=== PATIENT | female | born 1950 | race Caucasian/White ===

== ENCOUNTER 2018-12-06 09:36 | Outpatient (CLI) | payer MEDICARE, OTHER, SELFPAY ==
[2018-12-06 14:21] LABS: CREATININE 1.07 mg/dL (0.55-1.02); Calculated LDL 167 mg/dL; Cholesterol 275 mg/dL (50-200); Estimated GFR 50.84 (mL/min/1.73m2); HDL Cholesterol 71 mg/dL (40-60); Potassium 5.3 mmol/L (3.5-5.1); Triglyceride 189 mg/dL (30-150)
== END 2018-12-06 09:56 ==
PROVIDERS: PCP Family Medicine; Visit Provider Family Medicine
DX: I10 Essential (primary) hypertension (principal); E78.5 Hyperlipidemia, unspecified
CPT/HCPCS: 36415; 80061; 82565; 84132

== ENCOUNTER 2019-02-22 08:37 | Outpatient (CLI) | payer MEDICARE, OTHER, SELFPAY ==
[2019-02-22 18:56] LABS: Potassium 4.7 mmol/L (3.5-5.1)
== END 2019-02-22 08:57 ==
PROVIDERS: PCP Family Medicine; Visit Provider Family Medicine
DX: E87.5 Hyperkalemia (principal)
CPT/HCPCS: 36415; 84132

== ENCOUNTER 2019-11-29 02:46 | Outpatient (CLI) | payer MEDICARE, OTHER, SELFPAY ==
[2019-11-29 13:00] LABS: Abs Immature Grans 0.03 10^3/uL (0.0-0.06); Absolute Basophil Count 0.03 10^3/uL (0.0-0.2); Absolute Eosinophil Count 0.29 10^3/uL (0.0-0.7); Absolute Lymphocyte Count 2.12 10^3/uL (1.2-3.4); Absolute Monocyte Count 0.63 10^3/uL (0.1-0.8); Absolute Neutrophil Count 4.25 10^3/uL (1.2-6.7); Basophils % 0.4; Eosinophils % 3.9; HCT 43.1 % (36.0-46.0); HGB 14.2 g/dL (11.2-15.7); Immature Grans % 0.4; Lymphocytes % 28.8; MCH 30.6 pg (27.0-33.0); MCHC 32.9 % (32.0-36.0); MCV 92.9 fL (80-95); MPV 9.6 fL (8.0-11.0); Monocytes % 8.6; Neutrophils % 57.9; Nucleated RBC 0 %; Platelet Count 245 10^3/uL (130-400); RBC 4.64 10^6/uL (3.93-5.22); RDW 12.7 % (11.7-14.6); RDW-SD 43.3 fL; WBC 7.35 10^3/uL (4.4-10.8)
[2019-11-29 14:04] LABS: ESR 12 mm/hr (0-30)
[2019-11-29 14:07] LABS: Calculated LDL 191 mg/dL (<100); Cholesterol 285 mg/dL (<200); Glucose 101 mg/dL (74-106); HDL Cholesterol 75 mg/dL (40-60); Potassium 5.2 mmol/L (3.5-5.1); Triglyceride 95 mg/dL (<150); Vitamin B12 281 pg/mL (193-986)
[2019-11-29 14:18] LABS: C-Reactive Protein 0.14 mg/dL (0.0-0.3)
[2019-11-30 16:03] LABS: CREATININE 1.08 mg/dL (0.55-1.02); Estimated GFR 50.16 (mL/min/1.73m2)
== END 2019-11-29 03:06 ==
PROVIDERS: PCP Family Medicine; Visit Provider Family Medicine
DX: D64.9 Anemia, unspecified (principal); M25.50 Pain in unspecified joint; E78.5 Hyperlipidemia, unspecified; R73.9 Hyperglycemia, unspecified; R41.82 Altered mental status, unspecified; E87.5 Hyperkalemia
CPT/HCPCS: 36415; 80061; 82947; 85652; 82565; 82607; 84132; 85025; 86140

== ENCOUNTER 2020-02-20 05:13 | Outpatient (CLI) | payer MEDICARE, SELFPAY ==
[2020-02-20 12:44] LABS: Potassium 5.2 mmol/L (3.5-5.1)
== END 2020-02-20 05:33 ==
PROVIDERS: PCP Family Medicine; Visit Provider Family Medicine
DX: I10 Essential (primary) hypertension (principal)
CPT/HCPCS: 36415; 84132

== ENCOUNTER 2020-04-18 03:39 | Outpatient (CLI) | payer MEDICARE, SELFPAY ==
[2020-04-18 17:33] LABS: C-Reactive Protein 0.22 mg/dL (0.0-0.3)
[2020-04-19 12:58] LABS: ESR 16 mm/hr (<or=30)
[2020-04-20 16:38] LABS: Rheumatoid Factor <8.6 IU/mL (<12.0)
[2020-04-22 15:17] LABS: ANA Interpretation Positive (Negative); ANA Titer Pattern 1:320 Homogeneous
[2020-04-24 14:55] LABS: dsDNA Ab, IgG <12.3 IU/mL (<30.0)
== END 2020-04-18 03:40 | disposition home or self-care (01) ==
LOC: LBO 03:39
PROVIDERS: PCP Family Medicine; Visit Provider Family Medicine
DX: M25.541 Pain in joints of right hand (principal); M25.542 Pain in joints of left hand; M19.041 Primary osteoarthritis, right hand; M19.042 Primary osteoarthritis, left hand
CPT/HCPCS: 36415; 85652; 86038; 86140; 86225; 86431

== ENCOUNTER 2020-08-20 02:50 | Outpatient (CLI) | payer MEDICARE, SELFPAY ==
[2020-08-20 15:43] LABS: Abs Immature Grans 0.05 10^3/uL (0.0-0.06); Absolute Basophil Count 0.05 10^3/uL (0.0-0.2); Absolute Eosinophil Count 0.23 10^3/uL (0.0-0.7); Absolute Lymphocyte Count 2.18 10^3/uL (1.2-3.4); Absolute Monocyte Count 0.69 10^3/uL (0.1-0.8); Absolute Neutrophil Count 5.14 10^3/uL (1.2-6.7); Basophils % 0.6; Eosinophils % 2.8; HGB 12.8 g/dL (11.2-15.7); Immature Grans % 0.6; Lymphocytes % 26.1; MCH 30.5 pg (27.0-33.0); MCHC 32.8 % (32.0-36.0); MCV 92.9 fL (80-95); MPV 9.2 fL (8.0-11.0); Monocytes % 8.3; Neutrophils % 61.6; Nucleated RBC 0 %; Platelet Count 271 10^3/uL (130-400); RDW 12.7 % (11.7-14.6); RDW-SD 43.5 fL; WBC 8.34 10^3/uL (4.4-10.8)
[2020-08-20 16:33] LABS: ALT 25 U/L (14-59); AST 25 U/L (15-37); Albumin 3.6 g/dL (3.4-5.0); Alkaline Phosphatase 92 U/L (46-116); Anion Gap 9.7 mmol/L (3-11); BUN 16 mg/dL (7-18); Bilirubin, Total 0.2 mg/dL (0.2-1.0); CO2 26.3 mmol/L (21.0-32.0); CREATININE 1.2 mg/dL (0.55-1.02); Calcium 8.7 mg/dL (8.5-10.1); Chloride 100 mmol/L (98-107); Estimated GFR 44.29 (mL/min/1.73m2); Glucose 132 mg/dL (74-106); Potassium 4.2 mmol/L (3.5-5.1); Sodium 136 mmol/L (136-145); Total Protein 6.8 g/dL (6.4-8.2)
== END 2020-08-20 02:51 | disposition home or self-care (01) ==
LOC: LBO 02:50
PROVIDERS: PCP Family Medicine; Visit Provider Physician Assistant
DX: M25.551 Pain in right hip (principal); M25.552 Pain in left hip; Z79.899 Other long term (current) drug therapy; Z51.81 Encounter for therapeutic drug level monitoring
CPT/HCPCS: 36415; 80053; 85025

== ENCOUNTER 2021-03-10 02:07 | Outpatient (CLI) | payer MEDICARE, SELFPAY ==
--- NOTE | 2021-03-10 07:00 | DI.NM_ITS ---
APPROVED REPORT Exam: Pharmacologic Patient Location: Out-Patient Room/Bed: Stress Nurse: Peg Fischer RN Ordering Provider:NICOLAS LUJAN, Contact Number: [phone] BMI: 24.56 Baseline Rhythm: Sinus Rhythm Comment: Frequent PACs and occasional PVCs, T wave inversion lead V2 Indications: Chest pain Medical History Medical History: Hypertension, hyperliipidemia, AAA repair, COPD, hx CHF, COPD, depression, smoker (f ormer) Cardiac Medications: Aspirin, lisinopril, albuterol sulfate, trazodone, pantoprazole Allergies: Penicillin, corn syrup, soap and perfume products Cardiac Risk Factors: Hypertension, hyperlipidemia, smoker (former), COPD, CVD Previous Cardiac Procedures: AAA repair (2014) Pretest Chest Pain Characteristics: None Exercise History: Sedentary Physical Disabilities: Pt has new diagnosis psoriatic arthritis, current general pain level 8/10 Lung Sounds: Clear to auscultation, Clear to auscultation Heart Sounds: Regular Stress Test Details Test: Pharmacologic stress was paired with low level exercise. Reason for pharmacologic stress test: physical limitation. Nuclear Acquisition: Rest Tc-99m/Stress Tc-99m 1 day Rest Isotope: Tc-99m Sestamibi. Dose: 10.2 Date: 03/10/2021 Injection Time: 0920 Stress Isotope: Tc-99m Sestamibi. Dose: 29.1 Date: 03/10/2021 Injection Time: 1115 HR Resting HR Supine: 67 bpm Max Heart Rate (APMHR): 149.529919 bpm Resting HR Standin bpm Target HR (85% APMHR): 126.709992 bpm Max HR Achieved: 132 bpm % of APMHR: 88.59 Recovery HR: 85 bpm BP Resting BP Supine: 142/62 mmHg Resting BP Standin/64 mmHg Max BP: 138/64 mmHg Recovery BP: 116/60 mmHg ECG Resting ECG: Sinus Rhythm Ectopy: Frequent PACs and occasional PVCs, T wave inversion lead V2 Stress ECG: Sinus Tachycardia ST Change: Horizontal ST depression Lead(s): II, III, aVF Maximum ST Deviation: 1 mm Arrhythmia: Frequent PACs and PVCs Recovery ECG: Sinus Rhythm, BBB Recovery ST Change: No significant ST segment changes noted Recovery Arrhythmia: Frquent PACs and PVCs Comment: BBB developed at 0:07sec to min 01:59 in recovery period. Clinical Stress Symptoms: Dyspnea Rate Pressure Product: [id number] Stress ECG Conclusion 1. Resting electrocardiogram showed right axis deviation, poor R wave progression possible old anteri or infarct 2. Patient underwent testing using low-level exercise coupled with pharmacologic stress 3. Peak heart rate achieved was 88% of predicted for age 4. At end exercise the electrocardiogram showed a left bundle branch block pattern. On that basis th e electrocardiographic portion of the test was nondiagnostic Stress Test Summary STAGE HR BP Symptoms NOTES Supine 67 142/62 SPO2 94% 1 min post Lexiscan injection 125 142/68 Mild SOB, SPO2 94% 3 min post Lexiscan injection 94 132/64 Mild SOB, SPO2 93% 6 min post Lexiscan injection 85 116/60 SOB resolved, SPO2 92% 9 min post Lexiscan injection 85 SPO2 94% MPI Conclusion There was no myocardial ischemia There was infarction of the posterior lateral wall EF 45% with posterior lateral hypo to akinesis Radiologist Interpretation Radiologist Interpretation by: Eduardo Wolf MD Interpretation Date/Time: 03/10/2021 16:29:44
[2021-03-10] MEDS: Regadenoson 0.4 MG/5 ML SYR IVP (12:07)
== END 2021-03-10 02:27 ==
PROVIDERS: PCP Family Medicine; Visit Provider Family Medicine
DX: R07.9 Chest pain, unspecified (principal); I49.1 Atrial premature depolarization; I49.3 Ventricular premature depolarization; I10 Essential (primary) hypertension; E78.5 Hyperlipidemia, unspecified; Z87.891 Personal history of nicotine dependence; J44.9 Chronic obstructive pulmonary disease, unspecified; I25.10 Atherosclerotic heart disease of native coronary artery without angina pectoris; I44.7 Left bundle-branch block, unspecified
CPT/HCPCS: 78452; 93016; 93018; 93017; J2785

== ENCOUNTER 2021-04-09 09:00 | Outpatient (CLI) | payer MEDICARE, SELFPAY ==
--- NOTE | 2021-04-09 09:00 | RT.EKG_ITS ---
APPROVED REPORT Exam: Resting ECG Reason for Exam: chest pain Patient Location: O HR:77 bpm ECG Measurements Heart Rate 77 AXIS OR 160 P 36 QRSd 89 QRS 49 QT 393 T 70 QTc 445 Conclusion Sinus rhythm...normal P axis, V-rate 50- 99 Ventricular premature complex...V complex w/ short R-R interval Anteroseptal infarct, old...Q >40mS, V1-V2 Baseline wander in lead(s) I,III,aVL,aVF
== END 2021-04-09 09:01 | disposition home or self-care (01) ==
LOC: DI.CARD 09:00
PROVIDERS: PCP Family Medicine; Visit Provider Internal Medicine Cardiovascular Disease
DX: R07.9 Chest pain, unspecified (principal); R94.31 Abnormal electrocardiogram [ECG] [EKG]; I49.3 Ventricular premature depolarization
CPT/HCPCS: 93010

== ENCOUNTER → 2021-04-09 13:36 | Outpatient (BNVA) | payer MEDICARE, SELFPAY | PROVIDERS: PCP Family Medicine; Referring Provider Family Medicine; Visit Provider Internal Medicine Cardiovascular Disease | DX: I25.10 Atherosclerotic heart disease of native coronary artery without angina pectoris (principal); I10 Essential (primary) hypertension; R07.9 Chest pain, unspecified; I25.2 Old myocardial infarction | CPT/HCPCS: 93005; 99203 ==

== ENCOUNTER 2021-06-12 18:59 | Outpatient (REF) | payer MEDICARE, SELFPAY ==
[2021-06-18 11:35] LABS: 2-OH-Ethyl-Flurazepam Negative ng/mL (Cutoff: 10); 7-NH-Clonazepam Negative ng/mL (Cutoff: 10); Alpha OH-Alprazolam Negative ng/mL (Cutoff: 10); Alpha-OH Midazolam Negative ng/mL (Cutoff: 10); Alpha-OH-Triazolam Negative ng/mL (Cutoff: 10); Alprazolam Negative ng/mL (Cutoff: 10); Chlordiazepoxide Negative ng/mL (Cutoff: 10); Clobazam Negative ng/mL (Cutoff: 10); Clonazepam Negative ng/mL (Cutoff: 10); Diazepam Negative ng/mL (Cutoff: 10); Flurazepam Negative ng/mL (Cutoff: 10); Midazolam Negative ng/mL (Cutoff: 10); N-Desmethylclobazam Negative ng/mL (Cutoff: 10); Prazepam Negative ng/mL (Cutoff: 10); Temazepam Negative ng/mL (Cutoff: 10); Triazolam Negative ng/mL (Cutoff: 10); Zolpidem Carboxylic acid Negative ng/mL (Cutoff: 10)
== END 2021-06-12 19:00 | disposition home or self-care (01) ==
LOC: LBN 18:59
PROVIDERS: PCP Family Medicine; Visit Provider Family Medicine
DX: F90.9 Attention-deficit hyperactivity disorder, unspecified type (principal); M25.50 Pain in unspecified joint; Z79.899 Other long term (current) drug therapy
CPT/HCPCS: 80346

== ENCOUNTER → 2022-04-13 10:40 | Outpatient (BNVA) | payer MEDICARE, OTHER, SELFPAY | PROVIDERS: Referring Provider Family Medicine; Visit Provider Internal Medicine Cardiovascular Disease | DX: I25.10 Atherosclerotic heart disease of native coronary artery without angina pectoris | CPT/HCPCS: 99213 ==

== ENCOUNTER 2022-06-07 18:38 | Outpatient (REF) | payer MEDICARE, OTHER, SELFPAY ==
[2022-06-07 19:51] LABS: Abs Immature Grans 0.03 10^3/uL (0.0-0.06); Absolute Basophil Count 0.03 10^3/uL (0.0-0.2); Absolute Eosinophil Count 0.26 10^3/uL (0.0-0.7); Absolute Lymphocyte Count 1.93 10^3/uL (1.2-3.4); Absolute Monocyte Count 0.83 10^3/uL (0.1-0.8); Absolute Neutrophil Count 4.71 10^3/uL (1.2-6.7); Basophils % 0.4; Eosinophils % 3.3; HGB 13.5 g/dL (11.2-15.7); Immature Grans % 0.4; Lymphocytes % 24.8; MCH 30.7 pg (27.0-33.0); MCHC 32.9 % (32.0-36.0); MCV 93 fL (80-95); MPV 10.2 fL (8.0-11.0); Monocytes % 10.7; Neutrophils % 60.4; Platelet Count 266 10^3/uL (130-400); RDW 14.6 % (11.7-14.6); RDW-SD 50.3 fL; WBC 7.79 10^3/uL (4.4-10.8)
[2022-06-07 20:02] LABS: ALT 29 U/L (14-59); AST 30 U/L (15-37); Albumin 3.5 g/dL (3.4-5.0); Alkaline Phosphatase 100 U/L (46-116); Anion Gap 10.7 mmol/L (3-11); BUN 18 mg/dL (7-18); Bilirubin, Total 0.2 mg/dL (0.2-1.0); CO2 24.3 mmol/L (21.0-32.0); Calcium 8.3 mg/dL (8.5-10.1); Chloride 103 mmol/L (98-107); Estimated GFR 59.86 (mL/min/1.73m2); Glucose 89 mg/dL (74-106); Potassium 4.6 mmol/L (3.5-5.1); Sodium 138 mmol/L (136-145); TSH (W/Ref FT4) 1.63 uIU/mL (0.36-3.74); Total Protein 7.2 g/dL (6.4-8.2)
[2022-06-07 20:15] LABS: Iron 125 ug/dL (50-170); Total Iron Binding Capacity 311 ug/dL (250-450); Transferrin Sat 40 % (15-50)
== END 2022-06-07 18:39 | disposition home or self-care (01) ==
LOC: NCHCN 18:38
PROVIDERS: Visit Provider Nurse Practitioner Family
DX: R53.83 Other fatigue (principal); E87.5 Hyperkalemia; L40.50 Arthropathic psoriasis, unspecified; I10 Essential (primary) hypertension; I50.9 Heart failure, unspecified
CPT/HCPCS: 80053; 83540; 83550; 84443; 85025

== ENCOUNTER 2022-06-17 02:18 | Outpatient (CLI) | payer MEDICARE, OTHER, SELFPAY ==
[2022-06-17] MEDS: Albuterol HFA 18 GM 200 PUFF INH IH (09:15)
[2022-06-17] MEDS: Inhaler, Assist Device 1 EACH MC (09:16)
--- NOTE | 2022-06-18 12:50 | W.PFT ---
Date of service: 06/17/22 Time of Service: 08:02 Pulmonary Function Test Result Indications: Asthma Interpretation Spirometry: There is no airflow limitation. No significant bronchodilator repsonse. The FVC is low. Lung Volumes: There is mild restrictive lung disease. Diffusion Capacity: Reduced diffusion. Airway Pressure: Normal airways resistance. Impression Mild to moderate restrictive lung disease. Recommend assessment for interstitial lung disease, given the reduced diffusion. Clinical Correlation therefore is recommended.
== END 2022-06-17 02:19 | disposition home or self-care (01) ==
PROVIDERS: Visit Provider Nurse Practitioner Family
DX: J45.909 Unspecified asthma, uncomplicated (principal); J84.9 Interstitial pulmonary disease, unspecified
CPT/HCPCS: 94060; 94726; 94729

== ENCOUNTER → 2022-10-06 02:05 | Outpatient (CLI) | payer MEDICARE, OTHER, SELFPAY ==
--- NOTE | 2022-10-06 08:15 | DI.CT_ITS ---
Exam(s) CT CHEST HIGH RESOLUTION EXAM: CT CHEST HIGH RESOLUTION CLINICAL HISTORY: restictive PFT's, concern for ILD,J98.4. TECHNIQUE: Imaging protocol: Axial computed tomography images were obtained and coronal and sagittal reformatted images were created and reviewed. COMPARISON: CR CHEST 2 VIEWS PA,LAT from 02/03/2015 FINDINGS: The examination is limited due to patient motion artifact. Tracheobronchial tree: Mild bronchiectatic changes are present. Pulmonary parenchyma: There is thickening of the interstitium predominantly peripherally and most mar ked in the lung bases. There are few lucent areas seen in the lung apices which may reflect underlyi ng COPD. There do appear to be small peripheral areas of consolidation in the right lung and left li ngula. Mediastinum and Jackie: No dominant adenopathy or fluid collection. The esophagus is unremarkable.There is a large hiatal hernia. Thyroid gland: Unremarkable. Pleura: No effusion or pneumothorax. Heart: Cardiomegaly. Marked coronary artery calcification and/or stents are present. No pericardial effusion. Aorta: Thoracic aorta non-dilated. Atherosclerosis. Upper abdomen: Unremarkable. Lymph nodes: Within normal limits. Soft tissues: Unremarkable. Bones:Within normal limits for the patient's age. Old compression deformities of T4 and T5 are noted . IMPRESSION: 1. Findings of interstitial disease in the lung with mild bronchiectatic changes. 2. Lucencies in the lung apices suspicious for centrilobular emphysema. 3. Very small peripheral areas of consolidation in the lung-right upper and left lingular lobes. 4. Cardiomegaly and coronary artery calcification. 5. Large hiatal hernia. RADIATION DOSE DELIVERED: 379.89mGy.cm Total DLP 379.89mGy.cm Total DLP DATA REPOSITORY: All CT scans at this facility are submitted to the National Radiology Data Registry (NRDR) Dose Index Registry (DIR) with the [employer] (ACR). RADIATION OPTIMIZATION: All CT scans at this facility use at least one of these dose optimization te chniques: automated exposure control; mA and/or kV adjustment per patient size (includes targeted exa ms where dose is matched to clinical indication); or iterative reconstruction.
== END ==
PROVIDERS: PCP Nurse Practitioner Family; Visit Provider Student in an Organized Health Care Education/Training Program
DX: J84.9 Interstitial pulmonary disease, unspecified; K44.9 Diaphragmatic hernia without obstruction or gangrene; I51.7 Cardiomegaly
CPT/HCPCS: 71250

== ENCOUNTER 2022-12-17 16:51 | Outpatient (REF) | payer MEDICARE, OTHER, SELFPAY ==
[2022-12-17 15:47] LABS: HCT 40.5 % (36.0-46.0); HGB 13.6 g/dL (11.2-15.7); MCH 31.3 pg (27.0-33.0); MCHC 33.6 % (32.0-36.0); MCV 93 fL (80-95); MPV 10.5 fL (8.0-11.0); Platelet Count 251 10^3/uL (130-400); RBC 4.34 10^6/uL (3.93-5.22); RDW 14.3 % (11.7-14.6); WBC 9.66 10^3/uL (4.4-10.8)
[2022-12-17 15:57] LABS: Iron 125 ug/dL (50-170); Total Iron Binding Capacity 363 ug/dL (250-450); Transferrin Sat 34 % (15-50)
[2022-12-17 16:35] LABS: ALT 26 U/L (14-59); AST 32 U/L (15-37); Albumin 3.7 g/dL (3.4-5.0); Alkaline Phosphatase 107 U/L (46-116); Anion Gap 11.5 mmol/L (3-11); BUN 17 mg/dL (7-18); Bilirubin, Total 0.2 mg/dL (0.2-1.0); CO2 24.5 mmol/L (21.0-32.0); Chloride 98 mmol/L (98-107); Estimated GFR 59.49 (mL/min/1.73m2); Glucose 96 mg/dL (74-106); Potassium 4.9 mmol/L (3.5-5.1); Sodium 134 mmol/L (136-145); Total Protein 7.6 g/dL (6.4-8.2)
== END 2022-12-17 16:52 | disposition home or self-care (01) ==
LOC: NCHCN 16:51
PROVIDERS: PCP Nurse Practitioner Family; Visit Provider Nurse Practitioner Family
DX: Z86.2 Personal history of diseases of the blood and blood-forming organs and certain disorders involving the immune mechanism (principal); R53.83 Other fatigue; I10 Essential (primary) hypertension; E87.5 Hyperkalemia
CPT/HCPCS: 80053; 85027; 83540; 83550

== ENCOUNTER → 2022-12-20 13:32 | Outpatient (BNVA) | payer MEDICARE, OTHER, SELFPAY | PROVIDERS: PCP Nurse Practitioner Family; Visit Provider Physician Assistant Surgical | DX: J84.112 Idiopathic pulmonary fibrosis (principal); J44.9 Chronic obstructive pulmonary disease, unspecified; L40.50 Arthropathic psoriasis, unspecified; I10 Essential (primary) hypertension; Z86.16 Personal history of COVID-19 | CPT/HCPCS: 99214 ==

== ENCOUNTER → 2023-03-22 11:07 | Outpatient (BNVA) | payer MEDICARE, OTHER, SELFPAY | PROVIDERS: PCP Nurse Practitioner Family; Referring Provider Nurse Practitioner Family; Visit Provider Student in an Organized Health Care Education/Training Program | DX: J84.112 Idiopathic pulmonary fibrosis (principal); J96.11 Chronic respiratory failure with hypoxia; Z99.81 Dependence on supplemental oxygen; L40.50 Arthropathic psoriasis, unspecified | CPT/HCPCS: 99214 ==

== ENCOUNTER 2023-04-12 07:58 | Outpatient (CLI) | payer MEDICARE, OTHER, SELFPAY ==
--- NOTE | 2023-04-12 07:45 | RT.EKG_ITS ---
APPROVED REPORT Exam: Resting ECG Reason for Exam: cad Patient Location: O HR:74 bpm ECG Measurements Heart Rate 74 AXIS WY 156 P 72 QRSd 104 QRS 34 QT 376 T 14 QTc 418 Conclusion Sinus rhythm...normal P axis, V-rate 50- 99 Probable left atrial enlargement...P >50mS, <-0.10mV V1 Poor R wave progression, possible old anteroseptal IL
== END 2023-04-12 07:59 | disposition home or self-care (01) ==
LOC: DI.CARD 07:58
PROVIDERS: PCP Nurse Practitioner Family; Visit Provider Internal Medicine Cardiovascular Disease
DX: I25.10 Atherosclerotic heart disease of native coronary artery without angina pectoris (principal)
CPT/HCPCS: 93010

== ENCOUNTER → 2023-04-12 10:35 | Outpatient (BNVA) | payer MEDICARE, OTHER, SELFPAY | PROVIDERS: PCP Nurse Practitioner Family; Visit Provider Internal Medicine Cardiovascular Disease | DX: R94.31 Abnormal electrocardiogram [ECG] [EKG] (principal); R07.9 Chest pain, unspecified; I25.10 Atherosclerotic heart disease of native coronary artery without angina pectoris | CPT/HCPCS: 93005; 99213 ==

== ENCOUNTER 2023-05-05 05:51 | Outpatient (CLI) | payer MEDICARE, OTHER, SELFPAY ==
[2023-05-05] MEDS: Inhaler, Assist Device 1 EACH MC (13:44)
[2023-05-05] MEDS: Levalbuterol HFA 15 GM INH 4 PUFF IH (13:44)
--- NOTE | 2023-05-05 14:41 | W.PFT ---
Date of service: 05/05/23 Time of Service: 13:02 Pulmonary Function Test Result Indications: IPF Interpretation Spirometry: There is restrictive spirometry. No bronchodilator response. Diffusion Capacity: Decreased diffusion. Impression Restrictive spirometry with a decreased diffusion. Note: Compared to prior, the FEV1 and FVC has decreased. Clinical Correlation therefore is recommended.
== END 2023-05-05 05:52 | disposition home or self-care (01) ==
LOC: RT 05:51
PROVIDERS: PCP Nurse Practitioner Family; Visit Provider Student in an Organized Health Care Education/Training Program
DX: J84.112 Idiopathic pulmonary fibrosis (principal)
CPT/HCPCS: 94060; 94726; 94729

== ENCOUNTER 2023-06-15 15:53 | Outpatient (REF) | payer MEDICARE, OTHER, SELFPAY ==
[2023-06-15 19:20] LABS: Abs Immature Grans 0.05 10^3/uL (0.0-0.06); Absolute Basophil Count 0.03 10^3/uL (0.0-0.2); Absolute Eosinophil Count 0.17 10^3/uL (0.0-0.7); Absolute Lymphocyte Count 1.75 10^3/uL (1.2-3.4); Absolute Monocyte Count 0.69 10^3/uL (0.1-0.8); Absolute Neutrophil Count 7.79 10^3/uL (1.2-6.7); Basophils % 0.3 %; Eosinophils % 1.6 %; HCT 32.7 % (36.0-46.0); HGB 10.3 g/dL (11.2-15.7); Immature Grans % 0.5 %; Lymphocytes % 16.7 %; MCH 32.2 pg (27.0-33.0); MCHC 31.5 % (32.0-36.0); MCV 102 fL (80-95); MPV 9.8 fL (8.0-11.0); Monocytes % 6.6 %; Neutrophils % 74.3 %; Platelet Count 262 10^3/uL (130-400); RDW 14.3 % (11.7-14.6); RDW-SD 54.5 fL; WBC 10.48 10^3/uL (4.4-10.8)
[2023-06-15 19:35] LABS: ALT 22 U/L (14-59); AST 25 U/L (15-37); Albumin 2.9 g/dL (3.4-5.0); Alkaline Phosphatase 85 U/L (46-116); Anion Gap 9.7 mmol/L (3-11); BUN 17 mg/dL (7-18); Bilirubin, Total 0.2 mg/dL (0.2-1.0); CO2 24.3 mmol/L (21.0-32.0); CREATININE 0.8 mg/dL (0.55-1.02); Calcium 8.2 mg/dL (8.5-10.1); Chloride 106 mmol/L (98-107); Estimated GFR 77.75 (mL/min/1.73m2); Glucose 138 mg/dL (74-106); Sodium 140 mmol/L (136-145); Total Protein 6.7 g/dL (6.4-8.2)
== END 2023-06-15 15:54 | disposition home or self-care (01) ==
LOC: NCHCN 15:53
PROVIDERS: PCP Nurse Practitioner Family; Visit Provider Nurse Practitioner Family
DX: I10 Essential (primary) hypertension (principal); J84.112 Idiopathic pulmonary fibrosis
CPT/HCPCS: 80053; 85025

== ENCOUNTER 2023-07-01 14:09 | Outpatient (REF) | payer MEDICARE, OTHER, SELFPAY ==
[2023-07-01 18:44] LABS: Abs Immature Grans 0.06 10^3/uL (0.0-0.06); Absolute Basophil Count 0.05 10^3/uL (0.0-0.2); Absolute Lymphocyte Count 2.13 10^3/uL (1.2-3.4); Absolute Monocyte Count 0.99 10^3/uL (0.1-0.8); Absolute Neutrophil Count 6.78 10^3/uL (1.2-6.7); Basophils % 0.5 %; HCT 34.3 % (36.0-46.0); HGB 10.7 g/dL (11.2-15.7); Immature Grans % 0.6 %; Lymphocytes % 20.9 %; MCHC 31.2 % (32.0-36.0); MCV 99 fL (80-95); MPV 9.9 fL (8.0-11.0); Monocytes % 9.7 %; Neutrophils % 66.3 %; Platelet Count 426 10^3/uL (130-400); RBC 3.45 10^6/uL (3.93-5.22); RDW 13.6 % (11.7-14.6); RDW-SD 49.4 fL; WBC 10.21 10^3/uL (4.4-10.8)
[2023-07-01 19:05] LABS: ALT 23 U/L (14-59); AST 32 U/L (15-37); Albumin 3.3 g/dL (3.4-5.0); Alkaline Phosphatase 100 U/L (46-116); Anion Gap 9.7 mmol/L (3-11); BUN 22 mg/dL (7-18); Bilirubin, Total 0.3 mg/dL (0.2-1.0); CO2 26.3 mmol/L (21.0-32.0); Chloride 102 mmol/L (98-107); Estimated GFR 59.49 (mL/min/1.73m2); Glucose 88 mg/dL (74-106); NT-proBNP 2252 pg/mL (<300); Potassium 4.6 mmol/L (3.5-5.1); Sodium 138 mmol/L (136-145); Total Protein 7.3 g/dL (6.4-8.2)
== END 2023-07-01 14:10 | disposition home or self-care (01) ==
LOC: NCHCN 14:09
PROVIDERS: PCP Nurse Practitioner Family; Visit Provider Nurse Practitioner Family
DX: I50.9 Heart failure, unspecified (principal)
CPT/HCPCS: 80053; 83880; 85025

== ENCOUNTER 2023-09-15 18:49 | Outpatient (REF) | payer MEDICARE, OTHER, SELFPAY ==
[2023-09-15 18:30] LABS: Abs Immature Grans 0.12 10^3/uL (0.0-0.06); Absolute Basophil Count 0.06 10^3/uL (0.0-0.2); Absolute Lymphocyte Count 2.04 10^3/uL (1.2-3.4); Absolute Monocyte Count 1.01 10^3/uL (0.1-0.8); Absolute Neutrophil Count 10.64 10^3/uL (1.2-6.7); Basophils % 0.4 %; Eosinophils % 2.3 %; HCT 34.9 % (36.0-46.0); HGB 10.9 g/dL (11.2-15.7); Immature Grans % 0.8 %; Lymphocytes % 14.4 %; MCH 27.9 pg (27.0-33.0); MCHC 31.2 % (32.0-36.0); MCV 89 fL (80-95); MPV 10.2 fL (8.0-11.0); Monocytes % 7.1 %; Platelet Count 338 10^3/uL (130-400); RBC 3.91 10^6/uL (3.93-5.22); RDW 17.9 % (11.7-14.6); RDW-SD 58.9 fL; WBC 14.19 10^3/uL (4.4-10.8)
[2023-09-15 18:34] LABS: Absolute Eosinophil Count 0.33 10^3/uL (0.0-0.7)
[2023-09-15 18:45] LABS: ALT 23 U/L (14-59); AST 24 U/L (15-37); Albumin 3.3 g/dL (3.4-5.0); Alkaline Phosphatase 86 U/L (46-116); BUN 22 mg/dL (7-18); Bilirubin, Total 0.24 mg/dL (0.2-1.0); Calcium 8.8 mg/dL (8.5-10.1); Chloride 104 mmol/L (98-107); Estimated GFR 59.12 (mL/min/1.73m2); Glucose 102 mg/dL (74-106); Potassium 4.7 mmol/L (3.5-5.1); Sodium 140 mmol/L (136-145); Total Protein 7.5 g/dL (6.4-8.2)
== END 2023-09-15 18:50 | disposition home or self-care (01) ==
LOC: NCHCN 18:49
PROVIDERS: Visit Provider Nurse Practitioner Family
DX: I50.9 Heart failure, unspecified (principal); J01.90 Acute sinusitis, unspecified
CPT/HCPCS: 80053; 85025

== ENCOUNTER 2023-10-07 12:51 | Outpatient (RCR) | payer MEDICARE, OTHER, SELFPAY ==
--- NOTE | 2023-10-07 14:30 | HOLTER_ITS ---
APPROVED REPORT Conclusion This is a 48-hour Holter monitor Predominant rhythm was sinus with an average heart rate of 100. Minimum was 70 maximum 123 There were occasional ventricular ectopic beats, comprising 1.2% of total There were occasional atrial premature beats, comprising 1.2% of total There were several brief self-limited atrial runs. The longest of these was 10 beats in duration There was no atrial fibrillation, no high-grade AV block, no pauses greater than 3 seconds No patient symptoms were reported
== END 2023-10-15 23:59 | disposition home or self-care (01) ==
LOC: CARDOPNVT 12:51
PROVIDERS: Visit Provider Internal Medicine Cardiovascular Disease
DX: I49.1 Atrial premature depolarization (principal)
CPT/HCPCS: 93227; 93225; 93226

== ENCOUNTER 2024-02-21 16:55 | Outpatient (REF) | payer MEDICARE, OTHER, SELFPAY ==
[2024-02-21 19:24] LABS: Abs Immature Grans 0.06 10^3/uL (0.0-0.06); Absolute Basophil Count 0.02 10^3/uL (0.0-0.2); Absolute Eosinophil Count 0.01 10^3/uL (0.0-0.7); Absolute Lymphocyte Count 0.65 10^3/uL (1.2-3.4); Absolute Monocyte Count 0.62 10^3/uL (0.1-0.8); Absolute Neutrophil Count 10.61 10^3/uL (1.2-6.7); Basophils % 0.2 %; Eosinophils % 0.1 %; HCT 33.5 % (36.0-46.0); HGB 10.1 g/dL (11.2-15.7); Immature Grans % 0.5 %; Lymphocytes % 5.4 %; MCH 25.8 pg (27.0-33.0); MCHC 30.1 % (32.0-36.0); MCV 86 fL (80-95); MPV 10.3 fL (8.0-11.0); Monocytes % 5.2 %; Neutrophils % 88.6 %; Platelet Count 346 10^3/uL (130-400); RBC 3.91 10^6/uL (3.93-5.22); RDW 16.7 % (11.7-14.6); RDW-SD 52.1 fL; WBC 11.97 10^3/uL (4.4-10.8)
[2024-02-21 19:26] LABS: ALT 17 U/L (14-59); AST 19 U/L (15-37); Albumin 3.4 g/dL (3.4-5.0); Alkaline Phosphatase 92 U/L (46-116); Anion Gap 8.1 mmol/L (3-11); BUN 23 mg/dL (7-18); Bilirubin, Total 0.29 mg/dL (0.2-1.0); CO2 28.9 mmol/L (21.0-32.0); CREATININE 1.1 mg/dL (0.55-1.02); Calcium 8.8 mg/dL (8.5-10.1); Chloride 100 mmol/L (98-107); Estimated GFR 52.73 (mL/min/1.73m2); Glucose 99 mg/dL (74-106); Potassium 4.9 mmol/L (3.5-5.1); Sodium 137 mmol/L (136-145); TSH 1.23 uIU/mL (0.36-3.74); Total Protein 7.2 g/dL (6.4-8.2)
== END 2024-02-21 16:56 | disposition home or self-care (01) ==
LOC: NCHCN 16:55
PROVIDERS: Visit Provider Nurse Practitioner Family
DX: I10 Essential (primary) hypertension (principal)
CPT/HCPCS: 80053; 84439; 84443; 85025

== ENCOUNTER 2024-03-23 16:14 | Inpatient (IN) | payer MEDICARE, OTHER, SELFPAY ==
[2024-03-23] VITALS (55 sets, daily range): BP systolic 110–167; BP diastolic 37–96; PULSE 72–162; RESP 16–46; TEMP 36.4–36.7; O2SAT 92–100
--- NOTE | 2024-03-23 16:15 | RT.EKG_ITS ---
APPROVED REPORT Exam: Resting ECG Reason for Exam: dyspnea Patient Location: E HR:124 bpm ECG Measurements Heart Rate 124 AXIS WA 177 P 98 QRSd 86 QRS 136 QT 293 T -40 QTc 421 Conclusion Sinus tachycardia...rate> 99 Paired ventricular premature complexes...sequence of 2 V complexes Probable right ventricular hypertrophy...prominent R or R' w/ RAD or JASMINA Probable lateral infarct, age indeterminate...Q >35mS, T neg, V5-V6 I aVL No STEMI
--- NOTE | 2024-03-23 16:30 | DI.RAD_ITS ---
Exam(s) XR CHEST 2V PA LATERAL EXAM: XR CHEST 2V PA LATERAL CLINICAL HISTORY: weakness, sob TECHNIQUE: 2D digital imaging was performed of the chest. Two images were obtained. PA and lateral views were obtained. COMPARISON: CR CHEST 2 VIEWS PA,LAT from 02/03/2015 FINDINGS: MEDIASTINUM: Normal. HEART: Cardiomegaly PULMONARY VASCULATURE: There is prominence of the pulmonary vasculature. LUNGS: Bilateral ill-defined opacities are seen in the lungs. There is prominence of the interstitiu m in the lung which may represent edema. PLEURAL SPACE: No pleural effusion or pneumothorax. BONE:Within normal limits for the patient's age. There is a stable upper thoracic compression deform ity. OTHER FINDINGS:Normal. IMPRESSION: Cardiomegaly, prominence of the pulmonary vasculature and interstitial prominence suspicious for flui d overload/congestive heart failure. A superimposed pneumonia particularly in the right lung base ca nnot be excluded. Please correlate clinically. DATA REPOSITORY: RADIATION DOSE DELIVERED:
[2024-03-23 16:38] LABS: HCT 37.5 % (36.0-46.0); HGB 11.2 g/dL (11.2-15.7); MCH 25.2 pg (27.0-33.0); MCHC 29.9 % (32.0-36.0); MCV 84 fL (80-95); MPV 9.9 fL (8.0-11.0); Platelet Count 366 10^3/uL (130-400); RBC 4.45 10^6/uL (3.93-5.22); RDW 18.1 % (11.7-14.6); RDW-SD 55.7 fL; WBC 14.31 10^3/uL (4.4-10.8)
--- NOTE | 2024-03-23 16:45 | W.ED.GENAD ---
Discharge Plan Discharge Details Chief Complaint: SOB Admit Date/Time: 03/23/24 19:06 Admit Provider: Chino Uribe Attending Provider: Chino Uribe Primary Care Provider: Izzy Bhandari ED Provider: Fabienne Merlos Discharge Data Discharge Date/Time-TO BE ENTERED AT DEPARTURE: 03/23/24 21:32 HPI General Date/Time Provider Initiated Documentation: 03/23/24 16:22. HPI Narrative: Peg is a 73 year old female who presents to the emergency department today for evaluation of not feeling well. She reports she has had shortness of breath/lightheadedness that is worsened with ambulation, weakness, and fatigue for the last couple of months. Diarrhea on-and-off for the last few weeks. Denies fever/chills, unusual headaches, congestion, sore throat, change in baseline cough, nausea/vomiting, change in bladder function, or abdominal pain other then cramping prior to diarrhea. past medical history is significant for chronic respiratory failure on home O2 therapy, idiopathic pulmonary fibrosis, COPD/asthma, HTN, anxiety/depression, CAD, history of abdominal aortic aneurysm repair, GERD, heart murmur. Physical exam reassuring. Peg is alert and oriented, in no acute distress. Moist mucous membranes. Easy work of breathing, coarse lung sounds noted in bilateral bases. Tachycardia noted, irregular rate and rhythm. Abdomen is soft, nondistended, nontender to palpation. No pedal edema or obvious JVD. Runs of frequent PVCs and occasional 4-6 beat runs of tachycardia noted on monitor. D/dx includes but is not limited to: ACS, cardiac arrhythmia, PE, PNA, CHF, electrolyte imbalance, dehydration, viral illness, severe anemia I independently interpreted the following tests: EKG notable for sinus tachycardia with frequent PVCs, normal intervals. No changes consistent with acute ischemia. CBC notable for leukocytosis, white cell count 14.31. Mild hypomagnesemia (1.7) and hypokalemia (3.2) noted. CMP otherwise unremarkable. D-dimer very elevated at 1697. Coags and TSH unremarkable. CTA performed, notable for stable pulmonary fibrosis and cardiomegaly, no evidence of PE. While in the emergency department, Peg received IV potassium and magnesium for replenishment. As patient continued to have concerning runs of V. tach and frequent PVCs in setting of feeling unwell, discussed case with Dr. Uribe. Patient to be admitted for telemetry and further cardiac evaluation. Related Data Home Medications ?Medication ?Instructions ?Recorded ?Confirmed Bacillus coagulans 10 billion cell 1 ea PO DAILY 03/01/17 03/23/24 capsule,delayed release (Probiotic (B. coagulans)) inhalational spacing device #1 ea 04/12/18 03/23/24 (Aerochamber MV spacer) aspirin 325 mg tablet 325 mg PO DAILY 11/25/20 03/23/24 meloxicam 15 mg tablet 15 mg PO DAILY PRN pain #90 tabs 11/25/20 03/23/24 lisinopril 10 1 tab PO DAILY #90 tab-caps 12/08/20 03/23/24 mg-hydrochlorothiazide 12.5 mg tablet montelukast 10 mg tablet 10 mg PO DAILY #30 tabs 09/09/21 03/23/24 (Singulair) venlafaxine 75 mg capsule,extended 75 mg PO DAILY #30 caps 09/15/21 03/23/24 release 24 hr trazodone 50 mg tablet See Rx Instructions .Route 10/23/21 03/23/24 .COMPLEX #90 tabs Oxygen #1 ea 09/16/22 03/23/24 methylphenidate HCl 5 mg tablet 20 mg PO DAILY 09/16/22 03/23/24 pantoprazole 40 mg tablet,delayed 40 mg PO DAILY 09/16/22 03/23/24 release levocetirizine 5 mg tablet (Xyzal) 5 mg PO DAILY 12/20/22 03/23/24 levalbuterol tartrate 45 2 inh inhalation Q6H #15 grams 12/21/22 03/23/24 mcg/actuation aerosol inhaler methylprednisolone 4 mg tablet 4 mg PO QAM 02/11/23 03/23/24 acetaminophen 650 mg 650 mg PO BID PRN pain 02/22/23 03/23/24 tablet,extended release cetirizine 10 mg tablet (Zyrtec) 10 mg PO DAILY PRN 05/16/23 03/23/24 fluoxetine 20 mg capsule 60 mg PO DAILY 05/16/23 03/23/24 fluticasone propionate 50 1 spray intranasal DAILY PRN 05/16/23 03/23/24 mcg/actuation nasal spray,suspension aspirin 81 mg tablet,delayed 81 mg PO DAILY 03/23/24 03/23/24 release (Adult Aspirin Regimen) dextroamphetamine-amphetamine ER 20 mg PO DAILY 03/23/24 03/23/24 20 mg 24hr capsule,extend release furosemide 20 mg tablet 20 mg PO BID 03/23/24 03/23/24 lisinopril 10 mg tablet 10 mg PO DAILY 03/23/24 03/23/24 methylprednisolone 8 mg tablet 8 mg PO DAILY 03/23/24 03/23/24 Previous Rx's ?Medication ?Instructions ?Recorded inhalational spacing device #1 ea 04/12/18 (Aerochamber MV spacer) meloxicam 15 mg tablet 15 mg PO DAILY PRN pain #90 tabs 11/25/20 lisinopril 10 1 tab PO DAILY #90 tab-caps 12/08/20 mg-hydrochlorothiazide 12.5 mg tablet montelukast 10 mg tablet 10 mg PO DAILY #30 tabs 09/09/21 (Singulair) venlafaxine 75 mg capsule,extended 75 mg PO DAILY #30 caps 09/15/21 release 24 hr trazodone 50 mg tablet See Rx Instructions .Route 10/23/21 .COMPLEX #90 tabs Oxygen #1 ea 09/16/22 levalbuterol tartrate 45 2 inh inhalation Q6H #15 grams 12/21/22 mcg/actuation aerosol inhaler Allergies Allergy/AdvReac Type Severity Reaction Status Date / Time Penicillins Allergy Unknown unknown Verified 03/23/24 16:30 corn syrup AdvReac Joint and Verified 03/23/24 16:30 Head aches. soap and perfume products Allergy Unknown unknown Uncoded 03/23/24 16:30 General Stated Complaint: SOB FRANCISCO J: 2 Review of Systems Narrative: see HPI Exam Const General: cooperative, healthy appearing, comfortable, no acute distress and well developed Nutritional Appearance: average body habitus and well nourished Orientation: alert and oriented x3 Resp Effort & Inspection: normal respiratory effort and able to speak in complete sentences Auscultation: clear to auscultation bilaterally Cardio Rate: tachycardic Rhythm: regular rhythm GI Inspection: normal to inspection and non-distended Palpation: soft, not firm, no guarding, not rigid and nontender Extrem General: no pedal edema Course Vital Signs Vital signs: Vital Signs Temperature 36.4 C L 03/23/24 16:20 Pulse 117 H 03/23/24 16:20 Respiratory Rate 22 03/23/24 16:20 Blood Pressure 147/84 H 03/23/24 16:20 Pulse Oximetry 93 03/23/24 16:20 Temperature 36.4 C L 03/23/24 16:20 Temperature Source Tympanic 03/23/24 16:20 Pulse 117 H 03/23/24 16:20 Respiratory Rate 22 03/23/24 16:20 Blood Pressure 147/84 H 03/23/24 16:20 Pulse Oximetry 93 03/23/24 16:20 Oxygen Delivery Method Nasal Cannula 03/23/24 16:20 Oxygen Flow Rate 2 03/23/24 16:20 Lab/Test Results Lab/Test Results: Laboratory Tests Range/Units 03/23/24 16:27 WBC (4.4-10.8) 10^3/uL 14.31 H RBC (3.93-5.22) 10^6/uL 4.45 Hgb (11.2-15.7) g/dL 11.2 Hct (36.0-46.0) % 37.5 MCV (80-95) fL 84 MCH (27.0-33.0) pg 25.2 L MCHC (32.0-36.0) % 29.9 L RDW (11.7-14.6) % 18.1 H Plt Count (130-400) 10^3/uL 366 MPV (8.0-11.0) fL 9.9 Medical Decision Making Imaging Data Radiologic Study: Radiologist's impression: Exam(s) CT CHEST PE CTA EXAM: CT CHEST PE CTA CLINICAL HISTORY: SOB, weakness, tachycardia. TECHNIQUE: Imaging Protocol: Axial CT angiography was performed with multi-slice acquisition and multi-planar and/or 3D reconstructions. Lung Computer Aided Detection (CAD) was utilized. CONTRAST MATERIAL: Intravenous: Omnipaque 350 contrast volume:60 mL COMPARISON: CT CT CHEST HIGH RESOLUTION from 10/06/2022 CR XR CHEST 2V PA LATERAL from 03/23/2024 FINDINGS: Or patient motion Tracheobronchial tree: Patent where visualized. There is mild bronchiectasis particularly in the right lower lobe. Pulmonary parenchyma: There again seen prominent interstitial lung markings particularly in the right lung which appears stable. This may reflect pulmonary fibrosis. No new focal consolidating infiltrates are present. No suspicious pulmonary nodules are present. Pulmonary Arteries: No evidence of filling defect to suggest pulmonary emboli. Mediastinum and Jackie: No dominant adenopathy or fluid collection. The esophagus is unremarkable. There is a large hiatal hernia. Visualized thyroid gland: Unremarkable. Pleura: No effusion or pneumothorax. Heart: Cardiomegaly. Three vessel coronary artery calcification is present. No pericardial effusion. Aorta: Thoracic aorta non-dilated. No evidence of dissection. There is atherosclerotic calcification which is marked particularly involving the great vessels. Upper abdomen: Unremarkable. Soft tissues: Unremarkable. Bones: Within normal limits for the patient's age.There are old healed left rib fracture deformities. There are old T4 and T5 compression deformities. IMPRESSION: 1. No evidence of pulmonary embolism, thoracic aortic dissection or aneurysm. 2. Cardiomegaly. 3. Stable pulmonary fibrosis. No focal consolidating infiltrates. 4. Atherosclerotic calcification is present. Quality:SDOH Health Related Social Needs: Health related social needs housing instability, housed, with risk of homelessness (Z59.811), transportation insecurity (Z59.82), problems related to housing/economic circumstances (Z59.89), problems with daily activities (Z73.9), feeling lonely/isolated (Z60.8), education (Z55.6) PFSH All Active Problems (Updated 03/23/24 @ 19:13 by Chino Uribe MD) NSVT (nonsustained ventricular tachycardia) (Acute) Chronic respiratory failure with hypoxia, on home O2 therapy (Acute) Advanced care planning/counseling discussion (Acute) IPF (idiopathic pulmonary fibrosis) (Acute) Restrictive lung disease (Acute) Substance abuse (Acute) Anxiety and depression (Chronic) Hypertensive disorder (Chronic) Acute joint pain (Acute) ADD (attention deficit disorder) (Acute) Asthma (Chronic) with chronic copd Esophageal stricture (Acute) Psoriatic arthritis (Acute) Dizziness on standing (Acute) Fatigue (Acute) Pupil dilation (Acute) ? mild serotonin syndrome symptoms Coronary artery disease (Chronic) Chest pain (Acute) Positive JOSELO (antinuclear antibody) (Acute) Hand arthritis (Acute) Insomnia (Acute) Adjustment disorder (Acute) Hyperkalemia (Acute) Back pain (Acute) Arthralgia (Acute) add meloxicam Fracture of rib (Acute) Fracture of spinal vertebra (Acute) Heart failure (Acute) Papanicolaou smear of vagina with atypical squamous cells of undetermined significance (ASC-US) (Acute) Status post abdominal aortic aneurysm repair (Acute) Persistent mood disorder (Chronic) continue fluoxetine Reflux esophagitis (Acute) moderate esophageal stricture Pathological fracture of vertebra (Acute) Onychomycosis (Acute) Murmur, heart (Acute) Gastroesophageal reflux disease with esophagitis (Acute) moderate esophageal stricture Essential hypertension (Acute 02/21/13) Depressive disorder (Acute) Medical History (Updated 03/23/24 @ 19:13 by Chino Uribe MD) Palliative care encounter History of pathological fracture of vertebra History of alcoholism History of tobacco use History of ARDS Acute respiratory failure (01/13/94) pneumococcal pneumonia; intubation--cardigenic shock-cath 1995=X vessel disease Surgical History S/P AAA REPAIR (~08/2014) [facility] [place] EGD - IV Sedation (03/24/16) Colonoscopy - IV Sedation (03/24/16) Family History Mother , age 79 No problems noted. Father , age 96 No problems noted. Sister , age 62 No problems noted. Social History Smoking/Tobacco Use Status: Former Tobacco Use tobacco type: cigarettes Quit Date: 02/14/94 Pack-years: 25 Tobacco: How many years used: 30 Second Hand Exposure: No Smoking risk assessment performed?: Yes Alcohol Intake: former Drug use: Never Substance use type: does not use Caregiver/Support person: No Household members: none Housing: house Communication Needs: None Do you need help understanding health information?: Rarely Pets and animals: Yes Pets and animals: cat(s), dog(s), bird(s) and horse(s) Sexually active: No Do you think of yourself as: straight/heterosexual Current gender identity: female What is your relationship status?: How often do you talk on the phone with friends or family?: once per week How often do you get together with friends or relatives?: once per week How often do you attend hinduism or mandaeism services?: 1-3 times per year Do you belong to any clubs or organized social groups?: no Panel score (0-1 are the most socially isolated patients): 1 Duration: 60-90 minutes/day Frequency: daily Aneta/Restoration: No preference Special aneta needs: No Seatbelt use: sometimes Helmet use: Yes Helmet use: always Drive intox or ride w/intox refrigerated national truck driver: No
[2024-03-23 17:00] LABS: PTT Activated 25.2 sec (20.6-30.2); Prothrombin Time 10.3 sec (9.1-11.1)
[2024-03-23 17:09] LABS: Magnesium 1.7 mg/dL (1.8-2.4); TSH (W/Ref FT4) 0.74 uIU/mL (0.36-3.74)
[2024-03-23 17:11] LABS: D-Dimer 1697 ng/mlFEU (<500)
--- NOTE | 2024-03-23 17:15 | DI.CT_ITS ---
Exam(s) CT CHEST PE CTA EXAM: CT CHEST PE CTA CLINICAL HISTORY: SOB, weakness, tachycardia. TECHNIQUE: Imaging Protocol: Axial CT angiography was performed with multi-slice acquisition and mu lti-planar and/or 3D reconstructions. Lung Computer Aided Detection (CAD) was utilized. CONTRAST MATERIAL: Intravenous: Omnipaque 350 contrast volume:60 mL COMPARISON: CT CT CHEST HIGH RESOLUTION from 10/06/2022 CR XR CHEST 2V PA LATERAL from 03/23/2024 FINDINGS: Or patient motion Tracheobronchial tree: Patent where visualized. There is mild bronchiectasis particularly in the righ t lower lobe. Pulmonary parenchyma: There again seen prominent interstitial lung markings particularly in the right lung which appears stable. This may reflect pulmonary fibrosis. No new focal consolidating infiltr ates are present. No suspicious pulmonary nodules are present. Pulmonary Arteries: No evidence of filling defect to suggest pulmonary emboli. Mediastinum and Jackie: No dominant adenopathy or fluid collection. The esophagus is unremarkable. Th ere is a large hiatal hernia. Visualized thyroid gland: Unremarkable. Pleura: No effusion or pneumothorax. Heart: Cardiomegaly. Three vessel coronary artery calcification is present. No pericardial effusion . Aorta: Thoracic aorta non-dilated. No evidence of dissection. There is atherosclerotic calcification which is marked particularly involving the great vessels. Upper abdomen: Unremarkable. Soft tissues: Unremarkable. Bones: Within normal limits for the patient's age.There are old healed left rib fracture deformities. There are old T4 and T5 compression deformities. IMPRESSION: 1. No evidence of pulmonary embolism, thoracic aortic dissection or aneurysm. 2. Cardiomegaly. 3. Stable pulmonary fibrosis. No focal consolidating infiltrates. 4. Atherosclerotic calcification is present. RADIATION DOSE DELIVERED: 37.9mGy.cm Total DLP DATA REPOSITORY: All CT scans at this facility are submitted to the National Radiology Data Registry (NRDR) Dose Index Registry (DIR) with the [employer] (ACR). RADIATION OPTIMIZATION: All CT scans at this facility use at least one of these dose optimization te chniques: automated exposure control; mA and/or kV adjustment per patient size (includes targeted exa ms where dose is matched to clinical indication); or iterative reconstruction.
[2024-03-23 17:32] LABS: Lab Add On Test DONE
[2024-03-23] MEDS: Normal Saline - Diluent 50 ML VIAL IJ (17:43)
[2024-03-23] MEDS: Omnipaque 350 MG/ML 100 ML BTL 60 ML IJ (17:43)
[2024-03-23 17:48] LABS: ALT 24 U/L (14-59); AST 21 U/L (15-37); Albumin 3.4 g/dL (3.4-5.0); Alkaline Phosphatase 83 U/L (46-116); Anion Gap 12.9 mmol/L (3-11); BUN 20 mg/dL (7-18); Bilirubin, Total 0.29 mg/dL (0.2-1.0); CO2 25.1 mmol/L (21.0-32.0); CREATININE 1.1 mg/dL (0.55-1.02); Calcium 9.2 mg/dL (8.5-10.1); Chloride 102 mmol/L (98-107); Estimated GFR 52.73 (mL/min/1.73m2); Glucose 146 mg/dL (74-106); Potassium 3.2 mmol/L (3.5-5.1); Sodium 140 mmol/L (136-145); Total Protein 7.7 g/dL (6.4-8.2); Troponin I 39 ng/L (<or=51)
[2024-03-23 17:58] LABS: Troponin I 36 ng/L (<or=51)
[2024-03-23] MEDS: POTASSIUM CHLORIDE 20 MEQ/100 ML BAG 50 MEQ IV_INF (18:03)
[2024-03-23] MEDS: Magnesium Oxide 400 MG TAB 800 MG PO (18:04)
[2024-03-23 18:17] LABS: Bilirubin Negative (Negative); Blood Negative (Negative); Clarity Clear (Clear); Glucose Negative (Negative); Ketones Negative (Negative); Leukocyte Esterase Negative (Negative); Nitrite Negative (Negative); Urobilinogen 0.2 mg/dL (Up to 0.2); pH 5.5 (5-8)
[2024-03-23] MEDS: Normal Saline 250 ML 50 ML (18:30)
[2024-03-23 18:53] LABS: COVID-19 PCR Negative (Negative); Influenza A PCR Negative (Negative); Influenza B PCR Negative (Negative); RSV PCR Negative (Negative)
[2024-03-23 18:54] LABS: Source Nasopharynx
--- NOTE | 2024-03-23 19:11 | W.PM.HP.N ---
Date of service: 03/23/24 Time of Service: 19:11 Assessment and Plan Assessment and plan (1) NSVT (nonsustained ventricular tachycardia): Status: Acute Assessment and plan: - As noted on telemetry in the emergency department -May be because of patient's persistent weakness over the last few months -May be exacerbated by hypokalemia which was 3.2 in the emergency department was given 20 mEq of IV potassium, will follow-up a.m. BMP -Patient was also given 2 g of IV magnesium -Started on 12.5 mg of p.o. Lopressor in the emergency department, will give additional doses and increase to twice daily dosing based on changes in frequency of PVCs/NSVT -Echocardiogram ordered though is not available over the weekend (2) Chronic respiratory failure with hypoxia, on home O2 therapy: Status: Acute Assessment and plan: - Without change in baseline oxygen requirement -Continue 4 L at rest and 6 L with ambulation (3) IPF (idiopathic pulmonary fibrosis): Status: Acute Assessment and plan: - Continue home inhaler treatment as well as daily 8 mg p.o. methylprednisolone (4) Anxiety and depression: Status: Chronic Assessment and plan: - Continue home antianxiety/depression regimen (5) Coronary artery disease: Status: Chronic Assessment and plan: - Continue home p.o. lisinopril, 81 mg aspirin (6) Reflux esophagitis: Status: Acute Assessment and plan: - Continue home PPI History of Present Illness History of Present Illness Chief Complaint: not feeling well Narrative: 73-year-old female with a past medical history of chronic hypoxic respiratory failure secondary to idiopathic pulmonary fibrosis, COPD/asthma, also has hypertension, anxiety/depression, coronary artery disease, GERD and history of repaired abdominal aortic aneurysm who presents to the emergency department with a chief complaint of not feeling well. Patient states that she has not been feeling well over the last few months and that she has had some worsening shortness of breath, lightheadedness with ambulation, increasing weakness and fatigue, and diarrhea that has been an on and off for the last few weeks. However, she has not had any cough, fever, or change in her home oxygen requirement which is baseline 4 L at rest and 6 L with exertion. In the emergency department the patient was noted as having normal physical exam, being somewhat tachycardic with heart rate in the high 100s, normal blood pressure, afebrile and a normal physical exam. However, we will CBC did show some mild leukocytosis (though patient is on chronic steroids), and CMP was unremarkable, patient was noted on telemetry to have frequent episodes of PVCs with short runs of NSVT. While in the emergency department the patient was given 800 mg of magnesium oxide, 2 g of IV magnesium, 20 mEq of IV potassium for potassium noted as being 3.2, and 12.4 mg of p.o. Lopressor. Patient was also noted as having 2 negative troponins. Is also noted the patient has been asymptomatic while in bed in at rest. At which time emergency room PA paged hospitalist for admission for patient with PVCs and NSVT. Review of Systems All systems reviewed & are unremarkable except as noted in HPI and below PFSH All Active Problems (Updated 03/23/24 @ 19:13 by Chino Uribe MD) NSVT (nonsustained ventricular tachycardia) (Acute) Chronic respiratory failure with hypoxia, on home O2 therapy (Acute) Advanced care planning/counseling discussion (Acute) IPF (idiopathic pulmonary fibrosis) (Acute) Restrictive lung disease (Acute) Substance abuse (Acute) Anxiety and depression (Chronic) Hypertensive disorder (Chronic) Acute joint pain (Acute) ADD (attention deficit disorder) (Acute) Asthma (Chronic) with chronic copd Esophageal stricture (Acute) Psoriatic arthritis (Acute) Dizziness on standing (Acute) Fatigue (Acute) Pupil dilation (Acute) ? mild serotonin syndrome symptoms Coronary artery disease (Chronic) Chest pain (Acute) Positive JOSELO (antinuclear antibody) (Acute) Hand arthritis (Acute) Insomnia (Acute) Adjustment disorder (Acute) Hyperkalemia (Acute) Back pain (Acute) Arthralgia (Acute) add meloxicam Fracture of rib (Acute) Fracture of spinal vertebra (Acute) Heart failure (Acute) Papanicolaou smear of vagina with atypical squamous cells of undetermined significance (ASC-US) (Acute) Status post abdominal aortic aneurysm repair (Acute) Persistent mood disorder (Chronic) continue fluoxetine Reflux esophagitis (Acute) moderate esophageal stricture Pathological fracture of vertebra (Acute) Onychomycosis (Acute) Murmur, heart (Acute) Gastroesophageal reflux disease with esophagitis (Acute) moderate esophageal stricture Essential hypertension (Acute 02/21/13) Depressive disorder (Acute) Medical History (Updated 03/23/24 @ 19:13 by Chino Uribe MD) Palliative care encounter History of pathological fracture of vertebra History of alcoholism History of tobacco use History of ARDS Acute respiratory failure (01/13/94) pneumococcal pneumonia; intubation--cardigenic shock-cath 1995=X vessel disease Surgical History S/P [place] REPAIR (~08/2014) [facility] [place]16[place] Colonoscopy - IV Sedation (03/24/16) Family History Mother , age 79 No problems noted. Father , age 96 No problems noted. Sister , age 62 No problems noted. Social History Smoking/Tobacco Use Status: Former Tobacco Use tobacco type: cigarettes Quit Date: 02/14/94 Pack-years: 25 Tobacco: How many years used: 30 Second Hand Exposure: No Smoking risk assessment performed?: Yes Alcohol Intake: former Drug use: Never Substance use type: does not use Caregiver/Support person: No Household members: none Housing: house Communication Needs: None Do you need help understanding health information?: Rarely Pets and animals: Yes Pets and animals: cat(s), dog(s), bird(s) and horse(s) Sexually active: No Do you think of yourself as: straight/heterosexual Current gender identity: female What is your relationship status?: How often do you talk on the phone with friends or family?: once per week How often do you get together with friends or relatives?: once per week How often do you attend confucianist or spiritism services?: 1-3 times per year Do you belong to any clubs or organized social groups?: no Panel score (0-1 are the most socially isolated patients): 1 Duration: 60-90 minutes/day Frequency: daily Aneta/Adventist: No preference Special aneta needs: No Seatbelt use: sometimes Helmet use: Yes Helmet use: always Drive intox or ride w/intox route delivery driver: No Meds Allergies and Home Medications Allergies Allergy/AdvReac Type Severity Reaction Status Date / Time Penicillins Allergy Unknown unknown Verified 03/23/24 16:30 corn syrup AdvReac Joint and Verified 03/23/24 16:30 Head aches. soap and perfume products Allergy Unknown unknown Uncoded 03/23/24 16:30 Home Medications ?Medication ?Instructions ?Recorded ?Confirmed ?Type Bacillus coagulans 10 billion cell 1 ea PO DAILY 03/01/17 03/23/24 History capsule,delayed release (Probiotic (B. coagulans)) inhalational spacing device #1 ea 04/12/18 03/23/24 Rx (Aerochamber MV spacer) aspirin 325 mg tablet 325 mg PO DAILY 11/25/20 03/23/24 History meloxicam 15 mg tablet 15 mg PO DAILY PRN pain #90 tabs 11/25/20 03/23/24 Rx lisinopril 10 1 tab PO DAILY #90 tab-caps 12/08/20 03/23/24 Rx mg-hydrochlorothiazide 12.5 mg tablet montelukast 10 mg tablet 10 mg PO DAILY #30 tabs 09/09/21 03/23/24 Rx (Singulair) venlafaxine 75 mg capsule,extended 75 mg PO DAILY #30 caps 09/15/21 03/23/24 Rx release 24 hr trazodone 50 mg tablet See Rx Instructions .Route 10/23/21 03/23/24 Rx .COMPLEX #90 tabs Oxygen #1 ea 09/16/22 03/23/24 Rx methylphenidate HCl 5 mg tablet 20 mg PO DAILY 09/16/22 03/23/24 History pantoprazole 40 mg tablet,delayed 40 mg PO DAILY 09/16/22 03/23/24 History release levocetirizine 5 mg tablet (Xyzal) 5 mg PO DAILY 12/20/22 03/23/24 History levalbuterol tartrate 45 2 inh inhalation Q6H #15 grams 12/21/22 03/23/24 Rx mcg/actuation aerosol inhaler methylprednisolone 4 mg tablet 4 mg PO QAM 02/11/23 03/23/24 History acetaminophen 650 mg 650 mg PO BID PRN pain 02/22/23 03/23/24 History tablet,extended release cetirizine 10 mg tablet (Zyrtec) 10 mg PO DAILY PRN 05/16/23 03/23/24 History fluoxetine 20 mg capsule 60 mg PO DAILY 05/16/23 03/23/24 History fluticasone propionate 50 1 spray intranasal DAILY PRN 05/16/23 03/23/24 History mcg/actuation nasal spray,suspension aspirin 81 mg tablet,delayed 81 mg PO DAILY 03/23/24 03/23/24 History release (Adult Aspirin Regimen) dextroamphetamine-amphetamine ER 20 mg PO DAILY 03/23/24 03/23/24 History 20 mg 24hr capsule,extend release furosemide 20 mg tablet 20 mg PO BID 03/23/24 03/23/24 History lisinopril 10 mg tablet 10 mg PO DAILY 03/23/24 03/23/24 History methylprednisolone 8 mg tablet 8 mg PO DAILY 03/23/24 03/23/24 History Exam Narrative Exam Narrative: Well-appearing older female laying in bed in no acute distress, ANO x 4, hard of hearing, baseline 4 L nasal cannula in place, heart regular rhythm, lungs clear to auscultation bilaterally, abdomen soft, nontender, nondistended Results Labs 03/23/24 16:27 03/23/24 16:27 Labs: Laboratory Results - last 24 hr 03/23/24 03/23/24 03/23/24 16:27 17:05 17:27 WBC 14.31 H RBC 4.45 Hgb 11.2 Hct 37.5 MCV 84 MCH 25.2 L MCHC 29.9 L RDW 18.1 H Plt Count 366 MPV 9.9 PT 10.3 INR 1.0 APTT 25.2 D-Dimer 1697 H Sodium 140 Potassium 3.2 L Chloride 102 Carbon Dioxide 25.1 Anion Gap 12.9 H BUN 20 H Creatinine 1.1 H Est GFR (CKD-EPI 2020) 52.73 Glucose 146 H Calcium 9.2 Magnesium 1.7 L Total Bilirubin 0.29 AST 21 ALT 24 Alkaline Phosphatase 83 Troponin I 39 Total Protein 7.7 Albumin 3.4 TSH 0.74 Urine Color Yellow Urine Clarity Clear Urine pH 5.5 Ur Specific [place] 1.020 Urine Protein Trace Urine Ketones Negative Urine Blood Negative Urine Nitrite Negative Urine Bilirubin Negative Urine Urobilinogen 0.2 Ur Leukocyte Esterase Negative Urine Glucose Negative COVID-19 Source SARS-CoV-2 (PCR) Influenza Type A (PCR) Influenza Type B (PCR) RSV (PCR) Add-On Test Request DONE 03/23/24 03/23/24 17:32 17:56 WBC RBC Hgb Hct MCV MCH MCHC RDW Plt Count MPV PT INR APTT D-Dimer Sodium Potassium Chloride Carbon Dioxide Anion Gap BUN Creatinine Est GFR (CKD-EPI 2020) Glucose Calcium Magnesium Total Bilirubin AST ALT Alkaline Phosphatase Troponin I 36 Total Protein Albumin TSH Urine Color Urine Clarity Urine pH Ur Specific [place] Urine Protein Urine Ketones Urine Blood Urine Nitrite Urine Bilirubin Urine Urobilinogen Ur Leukocyte Esterase Urine Glucose COVID-19 Source Nasopharynx SARS-CoV-2 (PCR) Negative Influenza Type A (PCR) Negative Influenza Type B (PCR) Negative RSV (PCR) Negative Add-On Test Request Last Vital Signs Temp 97.5 F L 03/23/24 17:06 Pulse 105 H 03/23/24 18:40 Resp 21 03/23/24 18:40 BP 128/78 03/23/24 18:31 Pulse Ox 100 03/23/24 18:40 Time Spent Time spent with Patient: >75 minutes Time was spent: preparing to see the patient(eg.review tests), obtaining and/or reviewing separately otained hiistory, ordering medications,tests, procedures, referring, communicating with other health customer care coordinator, indepentently interpreting results, counseling the patient and care coordination
[2024-03-23] MEDS: MAGNESIUM SULFATE 2 GM/50 ML BAG IV_INF (20:16)
[2024-03-23] MEDS: Metoprolol 12.5 MG TAB PO (20:16)
[2024-03-23 20:33] LABS: Troponin I 43 ng/L (<or=51)
--- NOTE | 2024-03-23 21:08 | W.PC.ACHO ---
Registration Status: Primary Language: Preferred Language: ED Information & Data Chief Complaint SOB 03/23/24 17:05 Chief Complaint SOB 03/23/24 16:51 Triage Note increase weakness, fatigue, 03/23/24 16:20 SOB worse with ambulation felt increasingly worse over the last 3 months Medical / Surgical History (Last Updated 05/03/23 @ 13:45 by Rianna Pelayo RN) Palliative care encounter History of pathological fracture of vertebra History of alcoholism History of tobacco use History of ARDS Acute respiratory failure (01/13/94) (Last Reviewed 04/12/23 @ 10:50 by Justina Shen MD) S/P AAA REPAIR (~08/2014) EGD - IV Sedation (03/24/16) Colonoscopy - IV Sedation (03/24/16) Most Recent Vital Signs Temperature 36.4 C L 03/23/24 17:06 Temperature Source Tympanic 03/23/24 17:06 Pulse 100 H 03/23/24 20:31 Pulse 112 H 03/23/24 20:40 Respiratory Rate 30 H 03/23/24 20:40 Respiratory Effort Normal, Non-Labored 03/23/24 17:06 Blood Pressure 143/58 H 03/23/24 20:31 Blood Pressure Mean 87 03/23/24 20:31 Pulse Oximetry 96 03/23/24 20:01 Oxygen Delivery Method Nasal Cannula 03/23/24 17:06 Oxygen Flow Rate 2 03/23/24 17:06 Pain Level 0 03/23/24 17:06 Allergies Penicillins Allergy (Unknown, Verified 03/23/24 16:30) unknown unknown corn syrup Adverse Reaction (Verified 03/23/24 16:30) Joint and Head aches. soap and perfume products Allergy (Unknown, Uncoded 03/23/24 16:30) unknown Precautions Isolation Standard precaution 03/23/24 17:05 Active Medications Generic Name Dose Route Start Last Admin Trade Name Freq PRN Reason Stop Dose Admin Iohexol 60 ml 03/23/24 17:45 03/23/24 17:43 Omnipaque 350 Mg/Ml 100 Ml Btl IJ 04/22/24 23:59 60 ml DIRECTED ISADORA Administration Sodium Chloride 50 ml 03/23/24 17:45 03/23/24 17:43 Normal Saline - Diluent 50 Ml Vial IJ 50 ml .FOR DI USE ISADORA Administration IV IV Catheter Type [Left Upper Peripheral IV arm] IV Catheter Type [Right Peripheral IV Antecubital] IV Catheter Gauge [Left Upper 18 arm] IV Catheter Gauge [Right 18 Antecubital] Diagnostics 03/23/24 03/23/24 03/23/24 Range/Units 20:10 17:56 17:32 WBC (4.4-10.8) 10^3/uL RBC (3.93-5.22) 10^6/uL Hgb (11.2-15.7) g/dL Hct (36.0-46.0) % MCV (80-95) fL MCH (27.0-33.0) pg MCHC (32.0-36.0) % RDW (11.7-14.6) % Plt Count (130-400) 10^3/uL MPV (8.0-11.0) fL PT (9.1-11.1) sec INR (0.9-1.1) APTT (20.6-30.2) sec D-Dimer (<500) ng/mlFEU Sodium (136-145) mmol/L Potassium (3.5-5.1) mmol/L Chloride (98-107) mmol/L Carbon Dioxide (21.0-32.0) mmol/L Anion Gap (3-11) mmol/L BUN (7-18) mg/dL Creatinine (0.55-1.02) mg/dL Est GFR (CKD-EPI 2020) (mL/min/1.73m2) Glucose (74-106) mg/dL Calcium (8.5-10.1) mg/dL Magnesium (1.8-2.4) mg/dL Total Bilirubin (0.2-1.0) mg/dL AST (15-37) U/L ALT (14-59) U/L Alkaline Phosphatase (46-116) U/L Troponin I 43 36 (<or=51) ng/L Total Protein (6.4-8.2) g/dL Albumin (3.4-5.0) g/dL TSH (0.36-3.74) uIU/mL Urine Color (Yellow) Urine Clarity (Clear) Urine pH (5-8) Ur Specific [place] (1.005-1.025) Urine Protein (Neg-Trace) mg/dL Urine Ketones (Negative) mg/dL Urine Blood (Negative) Urine Nitrite (Negative) Urine Bilirubin (Negative) Urine Urobilinogen (Up to 0.2) mg/dL Ur Leukocyte Esterase (Negative) Urine Glucose (Negative) mg/dL COVID-19 Source Nasopharynx SARS-CoV-2 (PCR) Negative (Negative) Influenza Type A (PCR) Negative (Negative) Influenza Type B (PCR) Negative (Negative) RSV (PCR) Negative (Negative) Add-On Test Request 03/23/24 03/23/24 03/23/24 Range/Units 17:27 17:05 16:27 WBC 14.31 H (4.4-10.8) 10^3/uL RBC 4.45 (3.93-5.22) 10^6/uL Hgb 11.2 (11.2-15.7) g/dL Hct 37.5 (36.0-46.0) % MCV 84 (80-95) fL MCH 25.2 L (27.0-33.0) pg MCHC 29.9 L (32.0-36.0) % RDW 18.1 H (11.7-14.6) % Plt Count 366 (130-400) 10^3/uL MPV 9.9 (8.0-11.0) fL PT 10.3 (9.1-11.1) sec INR 1.0 (0.9-1.1) APTT 25.2 (20.6-30.2) sec D-Dimer 1697 H (<500) ng/mlFEU Sodium 140 (136-145) mmol/L Potassium 3.2 L (3.5-5.1) mmol/L Chloride 102 (98-107) mmol/L Carbon Dioxide 25.1 (21.0-32.0) mmol/L Anion Gap 12.9 H (3-11) mmol/L BUN 20 H (7-18) mg/dL Creatinine 1.1 H (0.55-1.02) mg/dL Est GFR (CKD-EPI 2020) 52.73 (mL/min/1.73m2) Glucose 146 H (74-106) mg/dL Calcium 9.2 (8.5-10.1) mg/dL Magnesium 1.7 L (1.8-2.4) mg/dL Total Bilirubin 0.29 (0.2-1.0) mg/dL AST 21 (15-37) U/L ALT 24 (14-59) U/L Alkaline Phosphatase 83 (46-116) U/L Troponin I 39 (<or=51) ng/L Total Protein 7.7 (6.4-8.2) g/dL Albumin 3.4 (3.4-5.0) g/dL TSH 0.74 (0.36-3.74) uIU/mL Urine Color Yellow (Yellow) Urine Clarity Clear (Clear) Urine pH 5.5 (5-8) Ur Specific [place] 1.020 (1.005-1.025) Urine Protein Trace (Neg-Trace) mg/dL Urine Ketones Negative (Negative) mg/dL Urine Blood Negative (Negative) Urine Nitrite Negative (Negative) Urine Bilirubin Negative (Negative) Urine Urobilinogen 0.2 (Up to 0.2) mg/dL Ur Leukocyte Esterase Negative (Negative) Urine Glucose Negative (Negative) mg/dL COVID-19 Source SARS-CoV-2 (PCR) (Negative) Influenza Type A (PCR) (Negative) Influenza Type B (PCR) (Negative) RSV (PCR) (Negative) Add-On Test Request DONE Intake and Output - 24 Hour Total 03/23/24 16:14 thru 03/23/24 16:52 Intake Total 20 Balance 20 Weight 46.085 kg Intake: IV 20 Falls Risk Assessment History of Falls No History 03/23/24 17:02 Contributing Factors No Factors 03/23/24 17:02 Ambulatory Aids Independent 03/23/24 17:02 Tubes/Lines W/no contributing factors 03/23/24 17:02 Gait Evaluation No gait disturbance 03/23/24 17:02 Cognition No cognitive impairment 03/23/24 17:02 Fall Total Score 10 03/23/24 17:02 Level of Risk Standard/Low Risk 03/23/24 17:02 Problems (Last Updated 05/03/23 @ 13:45 by Rianna Pelayo RN) NSVT (nonsustained ventricular tachycardia) (Acute) Chronic respiratory failure with hypoxia, on home O2 therapy (Acute) IPF (idiopathic pulmonary fibrosis) (Acute) Anxiety and depression (Chronic) Coronary artery disease (Chronic) Reflux esophagitis (Acute) v v v v v v v v v Sending and/or Receiving Nurses: Please use comment section below to note any information pertinent to the patient hand-off not included above. Information / Comments: K replaced, Mag replaced. 4L 02. Standby assist d/t weakness. Report received from: Zaina GEORGE
[2024-03-23] MEDS: Inhaler, Assist Device 1 EACH MC (21:09)
[2024-03-23] MEDS: Normal Saline Flush 10 ML SYR IVP (21:56)
[2024-03-24] VITALS (7 sets, daily range): BP systolic 93–127; BP diastolic 59–71; PULSE 66–90; RESP 15–18; TEMP 36–36.7; O2SAT 88–95
[2024-03-24] MEDS: traZODone 50 MG TAB PO ×2 (03:34→19:29)
[2024-03-24] MEDS: Levalbuterol HFA 15 GM INH 2 PUFF IH ×4 (03:40→22:22)
[2024-03-24 06:56] LABS: HCT 31.3 % (36.0-46.0); HGB 9.3 g/dL (11.2-15.7); MCH 25.1 pg (27.0-33.0); MCHC 29.7 % (32.0-36.0); MCV 84 fL (80-95); MPV 10.1 fL (8.0-11.0); Platelet Count 264 10^3/uL (130-400); RBC 3.71 10^6/uL (3.93-5.22); RDW-SD 55.1 fL; WBC 10.81 10^3/uL (4.4-10.8)
[2024-03-24] MEDS: Enoxaparin 30 MG/0.3 ML SYR SC (07:41)
[2024-03-24] MEDS: Metoprolol 12.5 MG TAB PO ×2 (07:42→19:29)
[2024-03-24] MEDS: Montelukast 10 MG TAB PO (07:42)
[2024-03-24] MEDS: Aspirin E.C. 81 MG TABEC PO (07:42)
[2024-03-24] MEDS: Furosemide 20 MG TAB PO ×2 (07:42→15:16)
[2024-03-24] MEDS: methylPREDNISolone 4 MG TAB 8 MG PO (07:42)
[2024-03-24] MEDS: FLUoxetine 20 MG CAP 60 MG PO (07:42)
[2024-03-24] MEDS: Normal Saline Flush 10 ML SYR IVP ×2 (07:43→19:30)
[2024-03-24] MEDS: Pantoprazole 40 MG TABCR PO (07:43)
[2024-03-24] MEDS: Lisinopril 10 MG TAB PO (07:43)
[2024-03-24] MEDS: Acetaminophen 325 MG TAB PO ×2 (07:45→19:18)
[2024-03-24 07:48] LABS: Anion Gap 6.5 mmol/L (3-11); BUN 16 mg/dL (7-18); CO2 27.5 mmol/L (21.0-32.0); CREATININE 0.8 mg/dL (0.55-1.02); Calcium 8.7 mg/dL (8.5-10.1); Chloride 106 mmol/L (98-107); Estimated GFR 77.27 (mL/min/1.73m2); Glucose 90 mg/dL (74-106); Magnesium 2.3 mg/dL (1.8-2.4); Potassium 4.1 mmol/L (3.5-5.1); Sodium 140 mmol/L (136-145)
--- NOTE | 2024-03-24 08:05 | PDOC.CMIN ---
Date of service: 03/24/24 Time of Service: 08:05 Care Management Initial Assmt Initial Assessment Reason for Hospitalization: NSVT Functional Status/Living Situation Patient Presentation: Peg was awake and lying in bed when CM met with her. She easily engages in conversation and shared that she hasn't felt well for the last 3 months and spends the majority of her time in bed. She lives with her Naveed and he has been taking good care of her during this time. Peg does not have any children of her own, but does have step-children that she talks to frequently on the phone. 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 Town of Residence: [place] Resides with: Spouse (Naveed) Natural Supports: and darren-children Employment Status: Other (buys and sells antiques) Instrumental Activities of Daily Living (ADLs): Independent Medications Medication Management: No Issues/Barriers identified Physical Functioning/Mobility Assistive Device: Walker and Cane Advance Directives Advance Directives: Do you have an Advance Directive: N 07/06/14 20:43 AD On File at [facility]: N 07/06/14 20:43 Date Asked 03/23/24 03/23/24 16:26 AD Date Reviewed COLST On File at [facility] COLST Date Scanned Code Status Resuscitation Status DNR/DNI Insurance Coverage/Financial Issues Insurance: [employer] Medicare Financial Issues: None identified Care Team Visit Care Team Role Provider Type Izzy Bhandari Primary Care Provider NURSE PRACTITIONER Fabienne Zelaya Emergency Provider NURSE PRACTITIONER Chino Uribe MD Admit Provider [facility] STAFF PHYSICIAN Attending Provider Discharge Potential Discharge Needs: PT Evaluation, PCP F/U Appt and Other (Specialists: [facility] Pulmonology etc. ) Anticipated Barriers to Discharge: Medical Status Patient/Family Education Needs: Review discharge instructions, discuss Ask Me Three Transportation: Private vehicle Plan: Anticipate Peg will return home with resumption of [facility] RN/PT/DIRECTOR RECORDS MANAGEMENT services when medically cleared. She is not interested in STR, at this time. will provide transportation. CM will follow. Social Determinants of Health Screening Social Determinants of Health last assessed: 03/24/24 Will the Patient Participate in the Screening?: Yes Do you worry about having a steady place to live?: no Problems where you live: no known problems In the past 12 months, have you had to go without electric, gas, oil or water in your home?: no Have you or anyone in your house had to go without enough food to eat?: no Has lack of transportation kept you from medical appointments or from doing things needed for daily living?: yes Has anyone in your life made you feel unsafe or unsupported?: no How hard is it for you to pay for the very basics like food, housing, medical care, and heating? Would you say it is:: Somewhat hard Do you want help finding or keeping work or a job?: I do not need or want help If for any reason you need help with day-to-day activities such as bathing, preparing meals, shopping, managing finances, etc., do you get the help you need?: I could use a little more help How often do you feel lonely or isolated from those around you?: Sometimes Do you speak a language other than Yemeni at home?: Yes Does the patient want assistance with any of the above?: Yes Social Determinants of Health Comments(SDAK Details): pt would notmind jamesng extra help to help her take care of her Health Related Social Needs Health related social needs: transportation insecurity (Z59.82), problems related to housing/economic circumstances (Z59.89), problems with daily activities (Z73.9), feeling lonely/isolated (Z60.8) and education (Z55.6) PFSH All Active Problems (Updated 03/23/24 @ 19:13 by Chino Uribe MD) NSVT (nonsustained ventricular tachycardia) (Acute) Chronic respiratory failure with hypoxia, on home O2 therapy (Acute) Advanced care planning/counseling discussion (Acute) IPF (idiopathic pulmonary fibrosis) (Acute) Restrictive lung disease (Acute) Substance abuse (Acute) Anxiety and depression (Chronic) Hypertensive disorder (Chronic) Acute joint pain (Acute) ADD (attention deficit disorder) (Acute) Asthma (Chronic) with chronic copd Esophageal stricture (Acute) Psoriatic arthritis (Acute) Dizziness on standing (Acute) Fatigue (Acute) Pupil dilation (Acute) ? mild serotonin syndrome symptoms Coronary artery disease (Chronic) Chest pain (Acute) Positive JOSELO (antinuclear antibody) (Acute) Hand arthritis (Acute) Insomnia (Acute) Adjustment disorder (Acute) Hyperkalemia (Acute) Back pain (Acute) Arthralgia (Acute) add meloxicam Fracture of rib (Acute) Fracture of spinal vertebra (Acute) Heart failure (Acute) Papanicolaou smear of vagina with atypical squamous cells of undetermined significance (ASC-US) (Acute) Status post abdominal aortic aneurysm repair (Acute) Persistent mood disorder (Chronic) continue fluoxetine Reflux esophagitis (Acute) moderate esophageal stricture Pathological fracture of vertebra (Acute) Onychomycosis (Acute) Murmur, heart (Acute) Gastroesophageal reflux disease with esophagitis (Acute) moderate esophageal stricture Essential hypertension (Acute 02/21/13) Depressive disorder (Acute) Medical History (Updated 03/23/24 @ 19:13 by Chino Uribe MD) Palliative care encounter History of pathological fracture of vertebra History of alcoholism History of tobacco use History of ARDS Acute respiratory failure (01/13/94) pneumococcal pneumonia; intubation--cardigenic shock-cath 1995=X vessel disease Surgical History S/P AAA REPAIR (~08/2014) [facility] EGD - IV Sedation (03/24/16) Colonoscopy - IV Sedation (03/24/16) Family History Mother , age 79 No problems noted. Father , age 96 No problems noted. Sister , age 62 No problems noted. Social History Smoking/Tobacco Use Status: Former Tobacco Use tobacco type: cigarettes Quit Date: 02/14/94 Pack-years: 25 Tobacco: How many years used: 30 Second Hand Exposure: No Smoking risk assessment performed?: Yes Alcohol Intake: former Drug use: Never Substance use type: does not use Caregiver/Support person: No Household members: none Housing: house Communication Needs: None Do you need help understanding health information?: Rarely Pets and animals: Yes Pets and animals: cat(s), dog(s), bird(s) and horse(s) Sexually active: No Do you think of yourself as: straight/heterosexual Current gender identity: female What is your relationship status?: How often do you talk on the phone with friends or family?: once per week How often do you get together with friends or relatives?: once per week How often do you attend congregation or catholic services?: 1-3 times per year Do you belong to any clubs or organized social groups?: no Panel score (0-1 are the most socially isolated patients): 1 Duration: 60-90 minutes/day Frequency: daily Aneta/Sikhism: No preference Special aneta needs: No Seatbelt use: sometimes Helmet use: Yes Helmet use: always Drive intox or ride w/intox driver merchandiser: No
--- NOTE | 2024-03-24 14:08 | W.PM.PROGNOT ---
Date of Service Date of service: 03/24/24 Time of Service: 14:09 Assessment and Plan Assessment and plan (1) NSVT (nonsustained ventricular tachycardia): Status: Acute Assessment and plan: -As per ED work-up and might have been linked to ongoing weakness over the past 3 months other DDx to consider CHF - last past BNP 2252 in 06/2023 -May have been exacerbated by hypokalemia at 3.2 which resolved this morning status post replacement in the ED BMP in a.m. -Hyperkalemia with magnesium at 1.7 might also have been a component of this presentation; magnesium supplementation was provided and this morning mag is 2.3 -Initially treated with metoprolol tartrate 12.5 orally twice a day with no further ectopies will transition to metoprolol succinate 25 p.o. daily in a.m. With low threshold to give additional doses if recurrence of sustained PVCs /NSVT -Echocardiogram for 03/26/2024 -BNP in AM (2) Chronic respiratory failure with hypoxia, on home O2 therapy: Status: Acute Assessment and plan: -Has a history of pulmonary hypertension status post right catheterization at [facility] and pulmonary fibrosis -Pulmonology note status post PFT in April 2023 mentioned restrictive spirometry with no bronchodilator response with decreased FEV1 and FVC; FEV1 at 76 as per report -On presentation the patient exhibited no change to her oxygen requirement to disease 6 L on ambulation and 4 L at rest -04/05/2023 pulmonology notes mentioned COPD with asthma component. The patient has refused Ofev therapy in the past-if methylprednisolone discontinued low threshold to give chronic low-dose prednisone as the patient was intolerant to ICS in the past (3) IPF (idiopathic pulmonary fibrosis): Status: Acute Assessment and plan: - Ongoing treatment with home inhaler and daily 8 mg p.o. methylprednisolone (4) Anxiety and depression: Status: Chronic Assessment and plan: - Continue home medicine regimen (5) Coronary artery disease: Status: Chronic Assessment and plan: History of [place] and AAA repair in 2014 - On home dosing of aspirin 81 mg continue home p.o. lisinopril, 81 mg aspirin (6) Reflux esophagitis: Status: Acute Assessment and plan: - On home dose PPI (7) On deep vein thrombosis (DVT) prophylaxis: Status: Acute Assessment and plan: On low molecular weight heparin (8) Discharge planning issues: Status: Acute Assessment and plan: As seen palliative care in 2022 with COLST form stating no invasive interventions Palliative care consult ordered for re-evaluation of goals Discharge home when medically stable versus plan for hospice at home to be determined Discussed with Dr. Flores Subjective Subjective Patient reports: no new complaints, feels better, tolerating liquids well, tolerating a regular diet, voiding w/o difficulty and shortness of breath (improving ); denies diarrhea, blood in stool, vomiting or fever Exam Narrative Exam Narrative: Well-appearing older female laying in bed in no acute distress, ANO x 4, hard of hearing, baseline 4 L nasal cannula at rest in place,tele SR HR 77 w PVC's- heart regular rhythm, lungs clear to auscultation bilaterally, abdomen soft, nontender, nondistended, no CVA tenderness Objective Last Vital Signs Temp 36.6 C 03/24/24 11:20 Pulse 82 03/24/24 11:20 Resp 15 03/24/24 11:20 BP 93/59 L 03/24/24 11:20 Pulse Ox 88 L 03/24/24 11:20 Laboratory Results - last 24 hr 03/23/24 03/23/24 03/23/24 16:27 17:05 17:27 WBC 14.31 H RBC 4.45 Hgb 11.2 Hct 37.5 MCV 84 MCH 25.2 L MCHC 29.9 L RDW 18.1 H Plt Count 366 MPV 9.9 PT 10.3 INR 1.0 APTT 25.2 D-Dimer 1697 H Sodium 140 Potassium 3.2 L Chloride 102 Carbon Dioxide 25.1 Anion Gap 12.9 H BUN 20 H Creatinine 1.1 H Est GFR (CKD-EPI 2020) 52.73 Glucose 146 H Calcium 9.2 Magnesium 1.7 L Total Bilirubin 0.29 AST 21 ALT 24 Alkaline Phosphatase 83 Troponin I 39 Total Protein 7.7 Albumin 3.4 TSH 0.74 Urine Color Yellow Urine Clarity Clear Urine pH 5.5 Ur Specific [place] 1.020 Urine Protein Trace Urine Ketones Negative Urine Blood Negative Urine Nitrite Negative Urine Bilirubin Negative Urine Urobilinogen 0.2 Ur Leukocyte Esterase Negative Urine Glucose Negative COVID-19 Source SARS-CoV-2 (PCR) Influenza Type A (PCR) Influenza Type B (PCR) RSV (PCR) Add-On Test Request DONE 03/23/24 03/23/24 03/23/24 17:32 17:56 20:10 WBC RBC Hgb Hct MCV MCH MCHC RDW Plt Count MPV PT INR APTT D-Dimer Sodium Potassium Chloride Carbon Dioxide Anion Gap BUN Creatinine Est GFR (CKD-EPI 2020) Glucose Calcium Magnesium Total Bilirubin AST ALT Alkaline Phosphatase Troponin I 36 43 Total Protein Albumin TSH Urine Color Urine Clarity Urine pH Ur Specific [place] Urine Protein Urine Ketones Urine Blood Urine Nitrite Urine Bilirubin Urine Urobilinogen Ur Leukocyte Esterase Urine Glucose COVID-19 Source Nasopharynx SARS-CoV-2 (PCR) Negative Influenza Type A (PCR) Negative Influenza Type B (PCR) Negative RSV (PCR) Negative Add-On Test Request 03/24/24 06:05 WBC 10.81 H RBC 3.71 L Hgb 9.3 L Hct 31.3 L MCV 84 MCH 25.1 L MCHC 29.7 L RDW 18.0 H Plt Count 264 MPV 10.1 PT INR APTT D-Dimer Sodium 140 Potassium 4.1 Chloride 106 Carbon Dioxide 27.5 Anion Gap 6.5 BUN 16 Creatinine 0.8 Est GFR (CKD-EPI 2020) 77.27 Glucose 90 Calcium 8.7 Magnesium 2.3 Total Bilirubin AST ALT Alkaline Phosphatase Troponin I Total Protein Albumin TSH Urine Color Urine Clarity Urine pH Ur Specific [place] Urine Protein Urine Ketones Urine Blood Urine Nitrite Urine Bilirubin Urine Urobilinogen Ur Leukocyte Esterase Urine Glucose COVID-19 Source SARS-CoV-2 (PCR) Influenza Type A (PCR) Influenza Type B (PCR) RSV (PCR) Add-On Test Request Time Spent with Patient Time Spent with Patient: >50 minutes Time was spent: preparing to see the patient(eg.review tests), obtaining and/or reviewing separately otained hiistory, ordering medications,tests, procedures, referring, communicating with other health health care recruiter, indepentently interpreting results, counseling the patient and care coordination
[2024-03-25] VITALS (8 sets, daily range): BP systolic 93–124; BP diastolic 53–78; PULSE 68–86; RESP 15–20; TEMP 36.4–36.8; O2SAT 90–96
[2024-03-25 06:00] LABS: Abs Immature Grans 0.05 10^3/uL (0.0-0.06); Absolute Basophil Count 0.03 10^3/uL (0.0-0.2); Absolute Eosinophil Count 0.27 10^3/uL (0.0-0.7); Absolute Monocyte Count 1.13 10^3/uL (0.1-0.8); Absolute Neutrophil Count 7.16 10^3/uL (1.2-6.7); Basophils % 0.3 %; Eosinophils % 2.5 %; HGB 9.4 g/dL (11.2-15.7); Immature Grans % 0.5 %; Lymphocytes % 19.6 %; MCH 25.5 pg (27.0-33.0); MCHC 30.3 % (32.0-36.0); MCV 84 fL (80-95); Monocytes % 10.5 %; Neutrophils % 66.6 %; Platelet Count 241 10^3/uL (130-400); RBC 3.68 10^6/uL (3.93-5.22); RDW 17.7 % (11.7-14.6); RDW-SD 54.7 fL; WBC 10.74 10^3/uL (4.4-10.8)
[2024-03-25] MEDS: Acetaminophen 325 MG TAB PO ×3 (06:03→21:37)
[2024-03-25 06:27] LABS: Anion Gap 5.1 mmol/L (3-11); BUN 14 mg/dL (7-18); CO2 29.9 mmol/L (21.0-32.0); CREATININE 0.8 mg/dL (0.55-1.02); Calcium 8.5 mg/dL (8.5-10.1); Chloride 109 mmol/L (98-107); Estimated GFR 77.27 (mL/min/1.73m2); Glucose 102 mg/dL (74-106); NT-proBNP 6647 pg/mL (<300); Potassium 3.8 mmol/L (3.5-5.1); Sodium 144 mmol/L (136-145)
[2024-03-25] MEDS: Enoxaparin 30 MG/0.3 ML SYR SC (09:01)
[2024-03-25] MEDS: Metoprolol CR 25 MG TABCR PO (09:01)
[2024-03-25] MEDS: methylPREDNISolone 4 MG TAB 8 MG PO (09:02)
[2024-03-25] MEDS: Furosemide 20 MG TAB PO (09:02)
[2024-03-25] MEDS: Aspirin E.C. 81 MG TABEC PO (09:03)
[2024-03-25] MEDS: FLUoxetine 20 MG CAP 60 MG PO (09:04)
[2024-03-25] MEDS: Montelukast 10 MG TAB PO (09:04)
[2024-03-25] MEDS: Lisinopril 10 MG TAB PO (09:04)
[2024-03-25] MEDS: Pantoprazole 40 MG TABCR PO (09:05)
[2024-03-25] MEDS: Normal Saline Flush 10 ML SYR IVP ×2 (09:11→21:35)
--- NOTE | 2024-03-25 10:06 | PT.INIE ---
Date of service: 03/25/24 Time of Service: 09:30 PT Notes Visit Reasons: NSVT Inpatient Physical Therapy Evaluation Date: March 25, 2024 Referring Doctor: Stephani William PT Orders: PT CONSULT: Safety Consult for D/C Precautions: Fall, Standard Patient Profile/Admitting Diagnosis: Peg is a 73-year-old female with a past medical history of chronic hypoxic respiratory failure secondary to idiopathic pulmonary fibrosis, COPD/asthma, also has hypertension, anxiety/depression, coronary artery disease, GERD and history of repaired abdominal aortic aneurysm who presented to the emergency department with a chief complaint of not feeling well. Patient states that she has not been feeling well over the last few months and that she has had some worsening shortness of breath, lightheadedness with ambulation, increasing weakness and fatigue, and diarrhea that has been an on and off for the last few weeks. However, she has not had any cough, fever, or change in her home oxygen requirement which is baseline 4 L at rest and 6 L with exertion. Admitted secondary to NSVT PMHX: (Updated 03/23/24 @ 19:13 by Chino Uribe MD) NSVT (nonsustained ventricular tachycardia) (Acute) Chronic respiratory failure with hypoxia, on home O2 therapy (Acute) Advanced care planning/counseling discussion (Acute) IPF (idiopathic pulmonary fibrosis) (Acute) Restrictive lung disease (Acute) Substance abuse (Acute) Anxiety and depression (Chronic) Hypertensive disorder (Chronic) Acute joint pain (Acute) ADD (attention deficit disorder) (Acute) Asthma (Chronic) with chronic copdEsophageal stricture (Acute) Psoriatic arthritis (Acute) Dizziness on standing (Acute) Fatigue (Acute) Pupil dilation (Acute) ? mild serotonin syndrome symptomsCoronary artery disease (Chronic) Chest pain (Acute) Positive JOSELO (antinuclear antibody) (Acute) Hand arthritis (Acute) Insomnia (Acute) Adjustment disorder (Acute) Hyperkalemia (Acute) Back pain (Acute) Arthralgia (Acute) add meloxicamFracture of rib (Acute) Fracture of spinal vertebra (Acute) Heart failure (Acute) Papanicolaou smear of vagina with atypical squamous cells of undetermined significance (ASC-US) (Acute) Status post abdominal aortic aneurysm repair (Acute) Persistent mood disorder (Chronic) continue fluoxetineReflux esophagitis (Acute) moderate esophageal stricture Pathological fracture of vertebra (Acute) Onychomycosis (Acute) Murmur, heart (Acute) Gastroesophageal reflux disease with esophagitis (Acute) moderate esophageal stricture Essential hypertension (Acute 02/21/13) Depressive disorder (Acute) Medical History (Updated 03/23/24 @ 19:13 by Chino Uribe MD) Palliative care encounter History of pathological fracture of vertebra History of alcoholism History of tobacco use History of ARDS Acute respiratory failure (01/13/94) pneumococcal pneumonia; intubation--cardigenic shock-cath 1995=X vessel disease Surgical History [facility] Colonoscopy - IV Sedation (03/24/16) Social History/Home Situation: Lives in a private home with her in [place]. 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 Notes that she has not felt well for the past 3 months and her has been caring for her. Declines any use of assistive device at home. Patient notes that she tends to furniture surf. Reports independence with ADLs prior to admission Current Functional Limitations: Decreased activity tolerance, UE/LE weakness due to deconditioning. Equipment Owned/DME: SPC, FWW, Shower chair with grab bars Subjective: Peg notes that she is so tired and weak. Unsure what she will be able to do however is agreeable to PT consult this morning. Reports she is having stomach cramps Objective: General Observation: [place], telemetry, IV access L/R UE, O2 via nasal canula 4 liters Mental Status: Alert and oriented x3, very pleasant Pain: Declines any specific pain. Does not of occasional mid back pain Vital Signs: Monitored closely via nursing ROM: Right Upper Extremity: Demonstrates WFL AROM R UE Left Upper Extremity: Demonstrates WFL AROM L UE Right Lower Extremity: Demonstrates WFL AROM R LE Left Lower Extremity: Demonstrates WFL AROM L LE Strength: Right Upper Extremity: Shoulder flexion 4/5, abduction 4-/5, bicep 4/5, Good functional grasp Left Upper Extremity: Shoulder flexion 4/5, abduction 4-/5, bicep 4/5, Good functional grasp Right Lower Extremity: Hip flexion 4-/5, knee extension 4/5, knee flexion 4-/5, DF 4/5 Left Lower Extremity: Hip flexion 4-/5, knee extension 4/5, knee flexion 4-/5, DF 4/5 Sensation: Intact to light touch. Bed Mobility/Transfers: Patient up sitting in recliner at start of PT consult. Chair to commode: FWW CGA 10 ft Commode to Chair: FWW CGA 10 ft Sit to stand: CGA with FWW Stand to sit: Supervision Gait: 20ft from recliner to commode in room with use of FWW. Decreased cassidy. Required cueing for proper use of FWW. Nonantalgic. Balance: Static Sitting: Normal Dynamic Sitting: Normal Static Standing: Good Dynamic Standing: Fair 4 stage balance assessment: Feet together 10 seconds, Foot in instep of other foot 10 seconds, Tandem 4 seconds, Unilateral refused to try. Special Tests: Mobility Limitations Standardized Measure [facility] AM-PAC 6 clicks Basic Mobility Inpatient Short Form: Raw Score: 21 CMS Score: 29% Informed Consent/Education: Patient instructed in purpose of PT consult and plan of care. Assessment: Patient is a 73 year old female referred to physical therapy services with the diagnosis of NSVT. Patient presents with clinical signs and symptoms consistent with diagnosis, as demonstrated by the following impairment level findings: 1. Impaired strength bilateral lower extremity major muscle group 2. Impaired functional activity tolerance 3. Impaired balance reactions 4. Impaired pacing/breath control Impairments are contributing to the following functional limitations: 1. AMPAC score. 2. Declining transfer skills 3. Difficulty ambulating without assistance and assistive device 4. Increased time to complete ADLs/mobility tasks 5. Increased risk for falls Patient is assessed as a Moderate 31822 complexity based on the following: History: As above Examination: As above Presentation: Evolving Decision Making: Moderate Goals: Goals X1 week 1. Supine-Sit independent 2. Sit-Supine independent 3. Sit-Stand independent 4. Stand-Sit independent 5. Bed-Chair independent 6. Chair-Bed independent 7. Gait 200ft or greater with use of least restrictive AD as needed 8. Improved static and dynamic standing balance Plan of Care/Treatment Plan: 1-2x/day, 7 days/week x 1 week. Plan of care has been reviewed with the HIGH DENSITY PRESS OPERATOR providing the service under Physical Therapy direction. Initiate Physical Therapy intervention for strengthening, bed mobility, transfers, gait, stairs, balance training, use of assistive device. DISCHARGE RECOMMENDATIONS: Home with services with resumption of [facility] RN/PT/CARPET LAYER HELPER services when medically cleared TREATMENT CODE/TIME: 66245 30 minutes IE 9:30-10:00 am Deann oPpe [facility] Disclaimer: This note was created using [employer] voice recognition software. It was reviewed for major content. However, there may be multiple small discrepancies and errors due to the voice recognition aspects of the software.
--- NOTE | 2024-03-25 10:12 | PGE_ITS ---
Date of Service Date of service: 03/25/24 Time of Service: 10:12 Assessment and Plan Assessment and plan (1) NSVT (nonsustained ventricular tachycardia): Status: Acute Assessment and plan: -As per ED work-up and might have been linked to ongoing weakness over the past 3 months other DDx to consider CHF - last past BNP 2252 in 06/2023 -May have been exacerbated on presentation by hypokalemia at 3.2- Resolved s/p supplementation- BMP in AM -Hypomagnesemia with magnesium at 1.7 - now resolved - Mag in AM -Initially treated with metoprolol tartrate 12.5 orally twice a day with no further ectopies will transition to metoprolol succinate 25 p.o. daily in a.m. additional lopressor 12.5 mg BID added d/t additional ectopies- if tolerated total dosing of succinate would be up to 50 mg at d/c -Echocardiogram pending for 03/26/2024 -BNP 6647 from 06/2023- was on home dose of lasix 20 mg po BID - Starting furosemide 20 mg IV BID (2) Chronic respiratory failure with hypoxia, on home O2 therapy: Status: Acute Assessment and plan: -Pulmonary hypertension Dx status post right catheterization [place] [facility] [place] recently and pulmonary fibrosis -Pulmonology note status post PFT in April 2023 mentioned restrictive spirometry - FEV1 at 76 - a decrease as per report -On presentation the patient exhibited no change to her oxygen requirement to disease 6 L on ambulation and 4 L at rest - Warrants work-up for CHF as patient reported increased tiredness over the past 3 months - Echo pending -Pulmonology notes mentioned COPD with asthma component in 2023; refusal of Ofev therapy and recommendation for low dose prednisone t-if methylprednisolone discontinued as the patient was intolerant to ICS in the past (3) IPF (idiopathic pulmonary fibrosis): Status: Acute Assessment and plan: -Continue inhaler -Continue oral methylprednisolone (4) Anxiety and depression: Status: Chronic Assessment and plan: - Continue home medicine regimen (5) Coronary artery disease: Status: Chronic Assessment and plan: History of PA and AAA repair in 2014, ongoing cardiomegaly on imaging - On home dosing of aspirin 81 mg continue home p.o. lisinopril, 81 mg aspirin (6) Reflux esophagitis: Status: Acute Assessment and plan: - continue home PPI (7) On deep vein thrombosis (DVT) prophylaxis: Status: Acute Assessment and plan: On low molecular weight heparin (8) Discharge planning issues: Status: Acute Assessment and plan: As seen palliative care in 2022 with COLST form stating no invasive interventions Palliative care consult ordered for re-evaluation of goals of care Discharge home when medically stable versus plan for hospice at home to be determined s/p above consult Discussed with Dr. Flores Subjective Subjective Patient reports: no new complaints, feels better, tolerating liquids well, tolerating a regular diet, voiding w/o difficulty and shortness of breath (improving ); denies diarrhea, blood in stool, vomiting or fever Exam Narrative Exam Narrative: Well-appearing older female laying in bed in no acute distress, ANO x 4, hard of hearing, baseline 4 L nasal cannula at rest in place,tele SR HR 76 w PVC's 10- beat run VT this AM w/o symptoms- , clear upper lungs to auscultation [id number] Left lower lobes on unofficial POCUS, abdomen soft, nontender, nondistended, no CVA tenderness Objective Last Vital Signs Temp 36.4 C L 03/25/24 07:56 Pulse 82 03/25/24 07:56 Resp 16 03/25/24 07:56 BP 117/59 L 03/25/24 07:56 Pulse Ox 95 03/25/24 07:56 Laboratory Results - last 24 hr 03/25/24 05:45 WBC 10.74 RBC 3.68 L Hgb 9.4 L Hct 31.0 L MCV 84 MCH 25.5 L MCHC 30.3 L RDW 17.7 H Plt Count 241 MPV 10.0 Immature Gran % 0.5 Neutrophils % 66.6 Lymphocytes % 19.6 Monocytes % 10.5 Eosinophils % 2.5 Basophils % 0.3 Nucleated RBC % 0.0 Absolute Neutrophils 7.16 H Absolute Lymphocytes 2.10 Absolute Monocytes 1.13 H Absolute Eosinophils 0.27 Absolute Basophils 0.03 Sodium 144 Potassium 3.8 Chloride 109 H Carbon Dioxide 29.9 Anion Gap 5.1 BUN 14 Creatinine 0.8 Est GFR (CKD-EPI 2020) 77.27 Glucose 102 Calcium 8.5 Magnesium 2.0 NT-Pro-B Natriuret Pep 6647 H Time Spent with Patient Time Spent with Patient: >50 minutes Time was spent: preparing to see the patient(eg.review tests), obtaining and/or reviewing separately otained hiistory, ordering medications,tests, procedures, referring, communicating with other health child care centre manager, indepentently interpreting results, counseling the patient and care coordination
[2024-03-25] MEDS: Metoprolol 12.5 MG TAB PO ×2 (11:14→23:22)
--- NOTE | 2024-03-25 13:31 | PTTR_ITS ---
Date of service: 03/25/24 Time of Service: 13:05 PT Notes Visit Reasons: NSVT Inpatient Physical Therapy Treatment Note [facility] Date: March 25, 2024 PRECAUTIONS:Falls, Standard SUBJECTIVE: Peg notes that she is really tired and so weak. Requesting to return to bed for has been up all morning. OBJECTIVE: ? PAIN: Noted pain in her mid back and reports stiffness throughout her joints. Aches all over. Therapeutic Activities (15088y7-21 minutes): Direct one-on-one instruction in dynamic activities to improve functional performance. ? BED MOBILITY/TRANSFERS? Rolling L/R: Independent Supine-sit: Independent? Sit-supine: Independent ? Sit-stand: SBA? Stand-sit: Independent? Chair-bed: SBA with FWW Provided skilled cues and instruction on performance and technique throughout. Provided verbal cues for equipment management and technique Patient education regarding pacing and breathing techniques to maximize activity tolerance? GAIT? Assistive Device: FWW ? Weight bearing: AT Assist: CGA? Distance:? Chair to bed ? Deviation: Significant forward flexion of the thoralumbar spine. Cueing for proper posture and breathing ? Therapeutic Exercises (81392r6-28 minutes): Direct one-on-one instruction in therapeutic exercises to develop strength, endurance, range of motion and flexibility. ? Exercises: Seated March x10 R/L LAQ x10 R/L Heel/Toe Raise in seated x10 R/L Hip adduction iso 10x with manual resist Hip abduction iso 10x with manual resist? Provided skilled instruction in proper exercise performance Provided skilled manual cues to facilitate proper muscle recruitment and/or form ASSESSMENT:? fatigues very quickly. Requires continuous cueing for proper breathing technique. PLAN: Continue to advance within symptom allowance. TREATMENT CODE/TIME: 12570c8-33 minutes, 45503m3-05 minutes DISCHARGE RECOMMENDATION: Home with services with resumption of [facility] RN/PT/JET WORKER services when medically cleared
[2024-03-25] MEDS: Furosemide 20 MG/2 ML VIAL IVP (14:45)
[2024-03-25] MEDS: Levalbuterol HFA 15 GM INH 2 PUFF IH ×2 (16:58→21:53)
[2024-03-25] MEDS: traZODone 50 MG TAB PO (21:34)
[2024-03-26 02:31] VITALS: BP 114/70; PULSE 74; RESP 15; TEMP 36.6; O2SAT 96
[2024-03-26] MEDS: Acetaminophen 325 MG TAB PO (06:36)
[2024-03-26 06:44] LABS: Abs Immature Grans 0.04 10^3/uL (0.0-0.06); Absolute Basophil Count 0.03 10^3/uL (0.0-0.2); Absolute Eosinophil Count 0.29 10^3/uL (0.0-0.7); Absolute Lymphocyte Count 2.18 10^3/uL (1.2-3.4); Absolute Monocyte Count 1.02 10^3/uL (0.1-0.8); Absolute Neutrophil Count 6.31 10^3/uL (1.2-6.7); Basophils % 0.3 %; Eosinophils % 2.9 %; HCT 32.6 % (36.0-46.0); HGB 9.8 g/dL (11.2-15.7); Immature Grans % 0.4 %; Lymphocytes % 22.1 %; MCH 25.1 pg (27.0-33.0); MCHC 30.1 % (32.0-36.0); MCV 83 fL (80-95); MPV 10.1 fL (8.0-11.0); Monocytes % 10.3 %; Platelet Count 251 10^3/uL (130-400); RBC 3.91 10^6/uL (3.93-5.22); RDW 18.2 % (11.7-14.6); RDW-SD 55.1 fL; WBC 9.87 10^3/uL (4.4-10.8)
[2024-03-26 06:54] LABS: Anion Gap 6.4 mmol/L (3-11); BUN 17 mg/dL (7-18); CO2 28.6 mmol/L (21.0-32.0); CREATININE 0.8 mg/dL (0.55-1.02); Calcium 8.6 mg/dL (8.5-10.1); Chloride 107 mmol/L (98-107); Estimated GFR 77.27 (mL/min/1.73m2); Glucose 101 mg/dL (74-106); Magnesium 2.1 mg/dL (1.8-2.4); Potassium 3.8 mmol/L (3.5-5.1); Sodium 142 mmol/L (136-145)
[2024-03-26 07:57] VITALS: BP 103/74; PULSE 60; RESP 18; TEMP 36.6; O2SAT 97
[2024-03-26 09:00] VITALS: O2SAT 97
--- NOTE | 2024-03-26 10:38 | PT.INTREAT ---
PT Notes Visit Reasons: NSVT Inpatient Physical Therapy Treatment Note [facility] Date: 03/26/2024 PRECAUTIONS: Fall. Standard. Activity as tolerated. Per RT Mar, 4 L/minute at rest, 6 L/minute with walking. SUBJECTIVE: Anxious about walking. Needed to sit down after about 40 feet due to fatigue and anxiety. Complained of headache throughout. Nurse Rianna aware and managing. RT Mar clarified that patient should be on 6 L/minute with walking later on in the session. OBJECTIVE: General Observation: Telemetry monitoring in place. On continuous oxygen supplementation 4 L/minute at rest and 6 L/minute with walking per RT. ?IV access through L UE. Seated on bedside chair with heating pad on back when PT came in Pain:As above Vital Signs: SaO2 tanked to 86% with walking at 4 L/minute ? BED MOBILITY/TRANSFERS: Minimal verbal cueing provided for use of B hands as needed for support, movement sequence, AD management, and posture to reduce fall risk and minimize pain report ? Sit-stand: SBA? Stand-sit: Independent? GAIT? Assistive Device: FWW ? Weight bearing: FWB Assist: stand by assist ? Distance:? 40 feet ? Deviation: Significant forward flexion of the thoralumbar spine. Cueing for proper posture and breathing. Got anxious at end of walk and needed to sit down with Sao2 tanking down to 86% and went back up to 90% on 4 L after about 2 minutes and with instruction to do pursed lip breathing. ? ASSESSMENT:? Gets anxious when fatigue sets in. Needs cueing for breathing techniques, posture, and pacing to minimize fatigue and anxiety. Will benefit from HH PT for continued rehabilitation, functional mobility progression, and energy conservation techniques. PLAN: Progress strength and mobility level as tolerted while closely monitoring oxygen saturation levels. DISCHARGE RECOMMENDATION: Short-term SNF vs HH PT TREATMENT CODE/TIME: 14182 x 34 minutes for 2 units (10:38-11:12).
[2024-03-26] MEDS: Montelukast 10 MG TAB PO (10:50)
[2024-03-26] MEDS: Pantoprazole 40 MG TABCR PO (10:50)
[2024-03-26] MEDS: Lisinopril 10 MG TAB PO (10:50)
[2024-03-26] MEDS: Aspirin E.C. 81 MG TABEC PO (10:50)
[2024-03-26] MEDS: Metoprolol 12.5 MG TAB PO (10:50)
[2024-03-26] MEDS: methylPREDNISolone 4 MG TAB 8 MG PO (10:50)
[2024-03-26] MEDS: Furosemide 20 MG/2 ML VIAL IVP (10:51)
[2024-03-26] MEDS: FLUoxetine 20 MG CAP 60 MG PO (10:51)
[2024-03-26] MEDS: Metoprolol CR 25 MG TABCR PO (10:51)
[2024-03-26] MEDS: Normal Saline Flush 10 ML SYR IVP (10:52)
[2024-03-26] MEDS: Levalbuterol HFA 15 GM INH 2 PUFF IH (11:06)
--- NOTE | 2024-03-26 11:07 | RESPIRATORY ---
Pt wears 4L O2 at baseline at rest and 6L with ambulation. DME: [employer].
[2024-03-26] MEDS: Enoxaparin 30 MG/0.3 ML SYR SC (11:34)
[2024-03-26 11:37] VITALS: BP 106/58; PULSE 82; RESP 20; TEMP 36.3; O2SAT 95
--- NOTE | 2024-03-26 14:21 | DSE_ITS ---
Date of service: 03/26/24 Time of Service: 14:21 DS: Diagnosis Discharge Diagnosis (1) NSVT (nonsustained ventricular tachycardia): Status: Acute (2) Chronic respiratory failure with hypoxia, on home O2 therapy: Status: Acute (3) IPF (idiopathic pulmonary fibrosis): Status: Acute (4) Anxiety and depression: Status: Chronic (5) Coronary artery disease: Status: Chronic (6) Reflux esophagitis: Status: Acute (7) On deep vein thrombosis (DVT) prophylaxis: Status: Acute (8) Discharge planning issues: Status: Acute Discharge Plan Disposition Patient Disposition: Home W/Home Health Services Condition: Improving Discharge Details Reason For Visit: NSVT Admit Date/Time: 03/23/24 19:06 Admit Provider: Keri Garcias Attending Provider: Keri Garcias Primary Care Provider: Izzy Bhandari Hospital Course Hospital Course: The patient is a 73-year-old female with a significant past medical history of chronic hypoxic respiratory failure secondary to idiopathic pulmonary fibrosis, COPD/asthma, hypertension, anxiety/depression, coronary artery disease), gastroesophageal reflux disease, and history of repaired abdominal aortic aneurysm. She presented to the emergency department with a complaint of not feeling well for the past few months. The symptoms include worsening shortness of breath, increasing fatigue, weakness, lightheadedness on ambulation, and intermittent diarrhea for the past few weeks. The patient denied any cough, fever, or changes in her baseline oxygen requirements, which are 4L at rest and 6L with exertion. Upon arrival to the ED, the patient had a normal physical exam but was noted to be somewhat tachycardic (heart rate in the high 100s). A CBC revealed mild leukocytosis (likely due to chronic steroid use), and the CMP was unremarkable. Telemetry showed frequent PVCs with short runs of NSVT. The patient?s potassium was noted to be 3.2, and she was treated with IV potassium, magnesium, and metoprolol tartrate for rate control. Troponins were negative. Given the arrhythmia, the patient was admitted for further management of NSVT and PVCs. HOSPITAL COURSE: * NSVT (Nonsustained Ventricular Tachycardia): * The patient had frequent PVCs and NSVT on telemetry during her ED stay. The episodes may have been exacerbated by her hypokalemia (K+ 3.2), which was treated with IV potassium. The patient was also given IV magnesium and started on metoprolol tartrate 12.5 mg PO twice daily for rate control. * An echocardiogram * The patient was started on IV furosemide 20 mg BID as part of heart failure management, given the elevated BNP and clinical status. * * Chronic Respiratory Failure (Hypoxia, on home O2 therapy): * The patient has chronic hypoxic respiratory failure secondary to IPF and COPD/asthma. She was stable with no change in her baseline oxygen requirement (4L at rest, 6L with exertion). * Pulmonology had previously evaluated the patient with restrictive spirometry in April 2023. Pulmonary hypertension was noted on right heart catheterization at [facility] [place]. No change in oxygen needs was noted during hospitalization. * Idiopathic Pulmonary Fibrosis: * The patient is on home therapy for IPF and has been maintained on an 8 mg daily dose of methylprednisolone. No changes were made to her IPF management during hospitalization. * Anxiety and Depression: * The patient has a history of anxiety and depression, managed with home medications. These were continued during hospitalization. * Coronary Artery Disease: * The patient has a history of CAD, and her home regimen of lisinopril and aspirin was continued. * Reflux Esophagitis (GERD): * The patient?s GERD was managed with her home proton pump inhibitor (PPI). * Palliative Care: * The patient has a history of palliative care involvement and a COLST form stating no invasive interventions. DISCHARGE PLAN: * Medications at Discharge: * Metoprolol Succinate 25 mg PO daily * Furosemide 40 mg IV BID (continuing as part of heart failure management). * Lisinopril 20 mg PO daily. * Aspirin 81 mg PO daily. * Methylprednisolone 8 mg daily (for IPF management). * PPI (for GERD management). * Follow-up: * Continued follow-up with pulmonology for IPF and COPD management. * Follow-up with cardiology to assess for arrhythmias and heart failure. * Discharge Plan: * The patient is stable for discharge. She will continue her baseline home oxygen requirements (4L at rest, 6L with exertion). * Start Metoprolol 25 mg daily * Follow up with PCP * Follow up with cardiology Final Diagnosis: * Acute NSVT * Chronic Hypoxic Respiratory Failure with baseline O2 therapy * Idiopathic Pulmonary Fibrosis * Anxiety and Depression * Coronary Artery Disease Home Meds and New Rx's Prescriptions: New metoprolol succinate 25 mg Tablet Extended Release 24 Hr 25 mg PO DAILY Qty: 30 0RF Continued (DME) Aerochamber MV spacer See Dose Instructions .ROUTE .MEDSUPPLY Qty: 1 0RF Dose Instruction: As directed Rx Instructions: As directed montelukast [Singulair] 10 mg tablet 10 mg PO DAILY Qty: 30 2RF pantoprazole 40 mg tablet,delayed release (DR/EC) 40 mg PO DAILY (DME) Oxygen Tank See Rx Instructions .Route Qty: 1 0RF Rx Instructions: 6LPM with exertion levalbuterol tartrate 45 mcg/actuation HFA aerosol inhaler 2 inh inhalation Q6H Qty: 15 12RF Rx Instructions: Use twice a day and as needed Probiotic (B. coagulans) 1 EACH capsule,delayed release(DR/EC) 1 ea PO DAILY trazodone 50 mg tablet See Rx Instructions .ROUTE .COMPLEX Qty: 90 3RF Dose Instruction: TAKE ONE TABLET BY MOUTH EVERY DAY Rx Instructions: TAKE ONE TABLET BY MOUTH EVERY DAY acetaminophen 650 mg tablet extended release 650 mg PO BID PRN (Reason: pain) Patient Comments: 04/20/17 sometimes more than BID. si fluoxetine 20 mg capsule 60 mg PO DAILY Rx Instructions: 3 pils in am cetirizine [Zyrtec] 10 mg tablet 10 mg PO DAILY PRN aspirin [Adult Aspirin Regimen] 81 mg tablet,delayed release (DR/EC) 81 mg PO DAILY dextroamphetamine-amphetamine 20 mg capsule,extended release 24hr 20 mg PO DAILY Patient Comments: TAKE ONE CAPSULE BY MOUTH EVERY MORNING FOR ADD methylprednisolone 8 mg tablet 8 mg PO DAILY Patient Comments: TAKE ONE TABLET BY MOUTH EVERY DAY lisinopril 10 mg tablet 10 mg PO DAILY Patient Comments: TAKE ONE TABLET BY MOUTH EVERY DAY furosemide 20 mg tablet 20 mg PO BID Patient Comments: TAKE ONE TABLET BY MOUTH TWICE A DAY Discharge Instructions Instructions: Supraventricular tachycardia (SVT), Metoprolol Additional Instructions: Start metoprolol 25 mg daily until follow up with PCP or cardiology. Continue home medications. If light headed, dizzy, slow heart rate; stop and call PCP or go to the emergency department. Follow up with cardiology Follow up with PCP Stand Alone Forms: Nursing Discharge Form Referrals: [facility] [OTHER] - (Resumption of RN PT ARTIFICIAL INTELLIGENCE SPECIALIST) Izzy Bhandari [Primary Care Provider] - (Please call the office to set up a hospital follow up. I tried to leave a message with the office for you. ) Activity:: Activity as Tolerated Equipment/Supplies:: No Equipment Needed Diet:: Heart Healthy Discharge Orders Discharge Orders: Discharge Order (Routine); Ordered 03/26/24 Ordered By: Keri Garcias Discharge Data Discharge Date/Time-TO BE ENTERED AT DEPARTURE: 03/26/24 15:59 DS: Summary Time Spent with Patient providing and/or coordinating discharge services: Greater than 30 minutes Status at Discharge Functional status at discharge: independent ambulation Overall status at discharge: patient is back to baseline Mental Status: mental status grossly normal Speech and Movement: speech and movement normal Mood: congruent mood Affect: normal affect Quality:SDOH Health Related Social Needs: Health related social needs transportation insecurity (Z59.82), problems related to housing/economic circumstances (Z59.89), problems with daily activities (Z73.9), feeling lonely/isolated (Z60.8), education (Z55.6) Exam Const General: cooperative, healthy appearing, comfortable, no acute distress and well developed Nutritional Appearance: average body habitus and well nourished Orientation: alert and oriented x3 Resp Effort & Inspection: normal respiratory effort and able to speak in complete sentences Auscultation: clear to auscultation bilaterally Cardio Rate: tachycardic Rhythm: regular rhythm GI Inspection: normal to inspection and non-distended Palpation: soft, not firm, no guarding, not rigid and nontender Extrem General: no pedal edema Psych Mental Status: mental status grossly normal Speech and Movement: speech and movement normal Mood: congruent mood Affect: normal affect DS: Data Vitals/I&O Vitals and I&O: Vital Signs Temperature 36.3 C L 03/26/24 11:37 Temperature Source Temporal Artery Scan 03/26/24 11:37 Pulse 82 03/26/24 11:37 Pulse Rhythm Regular 03/23/24 21:26 Pulse 97 H 03/23/24 21:10 Respiratory Rate 20 03/26/24 11:37 Respiratory Effort Short of Breath 03/23/24 21:26 Respiratory Depth Shallow 03/23/24 21:26 Respiratory Pattern Tachypnea 03/23/24 21:26 Blood Pressure 106/58 L 03/26/24 11:37 Blood Pressure Mean 62 03/23/24 21:01 Pulse Oximetry 95 03/26/24 11:37 Oxygen Delivery Method Room Air 03/26/24 11:37 Oxygen Flow Rate 0 03/26/24 11:37 Pain Level 9 03/26/24 06:36 Comment RN Notified 03/25/24 19:30 Intake & Output 03/25/24 03/26/24 03/26/24 23:59 11:59 23:59 Intake Total 270 / 510 240 / 510 Output Total 150 / 300 1050 / 1050 Balance -140 / -190 -780 / -540 240 / -540 Intake: IV Oral 250 / 490 240 / 490 Output: Urine 150 / 300 1050 / 1050 Other: Urine Color Yellow Yellow Yellow Urine Appearance Cloudy Clear Clear Urine Odor Normal Normal Stool Size Smear Moderate Stool Characteristics Soft Soft Data Completed and Pending Labs on day of discharge: Labs from last 24 hours 03/26/24 03/26/24 06:15 06:15 WBC 9.87 RBC 3.91 L Hgb 9.8 L Hct 32.6 L MCV 83 MCH 25.1 L MCHC 30.1 L RDW 18.2 H Plt Count 251 MPV 10.1 Immature Gran % 0.4 Neutrophils % 64.0 Lymphocytes % 22.1 Monocytes % 10.3 Eosinophils % 2.9 Basophils % 0.3 Nucleated RBC % 0.0 Absolute Neutrophils 6.31 Absolute Lymphocytes 2.18 Absolute Monocytes 1.02 H Absolute Eosinophils 0.29 Absolute Basophils 0.03 Sodium 142 Potassium 3.8 Chloride 107 Carbon Dioxide 28.6 Anion Gap 6.4 BUN 17 Creatinine 0.8 Est GFR (CKD-EPI 2020) 77.27 Glucose 101 Calcium 8.6 Magnesium 2.1 Cancelled PFSH All Active Problems (Updated 03/24/24 @ 14:43 by Stephani William APRN) Discharge planning issues (Acute) On deep vein thrombosis (DVT) prophylaxis (Acute) NSVT (nonsustained ventricular tachycardia) (Acute) Chronic respiratory failure with hypoxia, on home O2 therapy (Acute) Advanced care planning/counseling discussion (Acute) IPF (idiopathic pulmonary fibrosis) (Acute) Restrictive lung disease (Acute) Substance abuse (Acute) Anxiety and depression (Chronic) Hypertensive disorder (Chronic) Acute joint pain (Acute) ADD (attention deficit disorder) (Acute) Asthma (Chronic) with chronic copd Esophageal stricture (Acute) Psoriatic arthritis (Acute) Dizziness on standing (Acute) Fatigue (Acute) Pupil dilation (Acute) ? mild serotonin syndrome symptoms Coronary artery disease (Chronic) Chest pain (Acute) Positive JOSELO (antinuclear antibody) (Acute) Hand arthritis (Acute) Insomnia (Acute) Adjustment disorder (Acute) Hyperkalemia (Acute) Back pain (Acute) Arthralgia (Acute) add meloxicam Fracture of rib (Acute) Fracture of spinal vertebra (Acute) Heart failure (Acute) Papanicolaou smear of vagina with atypical squamous cells of undetermined significance (ASC-US) (Acute) Status post abdominal aortic aneurysm repair (Acute) Persistent mood disorder (Chronic) continue fluoxetine Reflux esophagitis (Acute) moderate esophageal stricture Pathological fracture of vertebra (Acute) Onychomycosis (Acute) Murmur, heart (Acute) Gastroesophageal reflux disease with esophagitis (Acute) moderate esophageal stricture Essential hypertension (Acute 02/21/13) Depressive disorder (Acute) Medical History (Updated 03/24/24 @ 14:43 by Stephani William APRN) Palliative care encounter History of pathological fracture of vertebra History of alcoholism History of tobacco use History of ARDS Acute respiratory failure (01/13/94) pneumococcal pneumonia; intubation--cardigenic shock-cath 1994=X vessel disease Surgical History S/P AAA REPAIR (~08/2014) [facility] [place] EGD - IV Sedation (03/24/16) Colonoscopy - IV Sedation (03/24/16) Family History Mother , age 79 No problems noted. Father , age 96 No problems noted. Sister , age 62 No problems noted. Social History Smoking/Tobacco Use Status: Former Tobacco Use tobacco type: cigarettes Quit Date: 02/14/94 Pack-years: 25 Tobacco: How many years used: 30 Second Hand Exposure: No Smoking risk assessment performed?: Yes Alcohol Intake: former Drug use: Never Substance use type: does not use Caregiver/Support person: No Household members: none Housing: house Communication Needs: None Do you need help understanding health information?: Rarely Pets and animals: Yes Pets and animals: cat(s), dog(s), bird(s) and horse(s) Sexually active: No Do you think of yourself as: straight/heterosexual Current gender identity: female What is your relationship status?: How often do you talk on the phone with friends or family?: once per week How often do you get together with friends or relatives?: once per week How often do you attend hoahaoism or gnosticist services?: 1-3 times per year Do you belong to any clubs or organized social groups?: no Panel score (0-1 are the most socially isolated patients): 1 Duration: 60-90 minutes/day Frequency: daily Aneta/Nondenominational: No preference Special aneta needs: No Seatbelt use: sometimes Helmet use: Yes Helmet use: always Drive intox or ride w/intox flatbed truck driver: No Time Spent with Patient Time Spent with Patient: 45-69 minutes Time was spent: preparing to see the patient(eg.review tests), ordering medicati ons,tests, procedures, referring, communicating with other health client care representative, indepentently interpreting results, counseling the patient and care coordination
--- NOTE | 2024-03-26 15:02 | PT.INTREAT ---
PT Notes Visit Reasons: NSVT Inpatient Physical Therapy Treatment Note [facility] Date: 03/26/2024 pm session PRECAUTIONS: Fall. Standard. Activity as tolerated. Per RT Mar, 4 L/minute at rest, 6 L/minute with walking. SUBJECTIVE: Pt reports she is going home today but she continues to feel like she has no energy. OBJECTIVE: General Observation: Telemetry monitoring in place. On continuous oxygen supplementation 4 L/minute at rest and 6 L/minute with walking per RT. ?IV access through L UE. Seated on bedside chair with heating pad on back when PT came in. present and provided encouragement and support to Marcelle throughout session. Pain:As above Vital Signs: SaO2 trended to 88% with walking at 6 L/minute Pt tolerated standing task for 11 mins ? BED MOBILITY/TRANSFERS: Minimal verbal cueing provided for use of B hands as needed for support, movement sequence, AD management, and posture to reduce fall risk and minimize pain report ? Sit-stand: SBA? Stand-sit: Independent? sit to supine with HOB 30 degrees pt supervision with increased time to get BLE into bed. GAIT? Assistive Device: FWW ? Weight bearing: FWB Assist: stand by assist ? Distance:? 60 feet ? level surfaces and 2 turns.? Deviation: Significant forward flexion of the thoralumbar spine. Cueing for proper posture and breathing. Got anxious at end of walk and needed to sit down with Sao2 trending down to 88% and went back up to 92% on 6 L . Pt took 3 stand rests resting forearms on FWW with increased trunk flexion. ? ASSESSMENT:? Pt does get anxious when fatigue sets in and utilizes forward flexion on her FWW when SOSA.. Needs cueing for breathing techniques, posture, and pacing to minimize fatigue and anxiety. Will benefit from PT for continued rehabilitation, functional mobility progression, and energy conservation techniques. PLAN: Progress strength and mobility level as tolerated while closely monitoring oxygen saturation levels. DISCHARGE RECOMMENDATION: Home with services with resumption of [facility] RN/PT/[facility] services when medically cleared TREATMENT CODE/TIME: 91284 x 19 minutes for 1 units ([id number]).
--- NOTE | 2024-03-26 15:50 | PDOC.CMDIS ---
Date of service: 03/26/24 Time of Service: 12:00 LACE Index Scoring Tool Questions: Length of Stay (in days): 3 Was the patient admitted via the E.D.?: Yes Comorbidities: Chronic Pulmonary Disease E.D. Visits: 1 Answers: Total Score: 9 Risk of Readmission: Low Risk Care Management Discharge Plan Reason for Hospitalization: non sustained ventricular tachycardia Discharge Plan: Peg is discharged home with new medication of metoprolol succinate to control her heart rate. She will continue with her RN, PT and [employer]. She is encouraged to f/u with her PCP and also cardiology and to continue with her plan of care. Peg will be transported home with her . Patient/Family Education Needs: Review of discharge instructions, activity, limitations and discuss ask me 3. Services Needed at Discharge: Home Health Care Services (resumption of RN, PT and [employer].) SDOH Health Related Social Needs: Health related social needs transportation insecurity (Z59.82), problems related to housing/economic circumstances (Z59.89), problems with daily activities (Z73.9), feeling lonely/isolated (Z60.8), education (Z55.6)
--- NOTE | 2024-04-07 20:04 | NUR.NOTE ---
Chart accessed for Dr Mendes to find COLST form. Nursing Note:
== END 2024-03-26 15:59 | disposition home health service (06) | DRG 309 ==
LOC: ER 18:15 → MS 21:18
PROVIDERS: Family Medicine; Nurse Practitioner Acute Care; Admitting Provider Nurse Practitioner Family; Emergency Provider Nurse Practitioner Family; PCP Nurse Practitioner Family; Visit Provider Nurse Practitioner Family
DX: I47.29 Other ventricular tachycardia (principal); J96.11 Chronic respiratory failure with hypoxia; Z99.81 Dependence on supplemental oxygen; I25.10 Atherosclerotic heart disease of native coronary artery without angina pectoris; K21.00 Gastro-esophageal reflux disease with esophagitis, without bleeding; J84.112 Idiopathic pulmonary fibrosis; Z79.899 Other long term (current) drug therapy; J44.9 Chronic obstructive pulmonary disease, unspecified; I10 Essential (primary) hypertension; F41.8 Other specified anxiety disorders; R53.1 Weakness; I49.3 Ventricular premature depolarization; J98.4 Other disorders of lung; F19.10 Other psychoactive substance abuse, uncomplicated; F98.8 Other specified behavioral and emotional disorders with onset usually occurring in childhood and adolescence; K22.2 Esophageal obstruction; L40.50 Arthropathic psoriasis, unspecified; G47.00 Insomnia, unspecified; F34.1 Dysthymic disorder; Z87.891 Personal history of nicotine dependence; E83.42 Hypomagnesemia; I25.2 Old myocardial infarction; E87.6 Hypokalemia; I27.23 Pulmonary hypertension due to lung diseases and hypoxia; Z95.828 Presence of other vascular implants and grafts
CPT/HCPCS: 00123; 36415; 71275; 80048; 80053; 85027; 87637; 93005; 94640; 96365; 96366; 97110; 97162; 97530; 99285; 71046; 81003; 83735; 83880; 84443; 84484; 85025; 85379; 85610; 85730; 93010; 93306; 94664; 94760; 99223; 99233; 99239; J1650; J1941; J3475; J3480; J3490; J7509